=== PATIENT | male | born 1930 | race Hispanic/Latino ===

== ENCOUNTER 2017-11-21 10:36 | Emergency (ER) | payer MEDICARE ==
[~2017-11-21] VITALS: Ht 160 cm; Wt 71.2 kg
[~2017-11-21 10:36] MED LIST: AMLODIPINE BESY10 MG PO; ASPIRIN EC81 MG PO; ASPIRIN325 MG PO; ATENOLOL25 MG PO; ATENOLOL50 MG PO; ATORVASTATIN CA10 MG PO; AVODART0.5 MG PO; CEPHALEXIN500 MG PO; CLONIDINE HCL0.1 MG PO; CYCLOBENZAPRINE10 MG PO; FLOMAX0.4 MG PO; FOLIC ACID0.4 MG PO; GEMFIBROZIL600 MG PO; GLIPIZIDE ER10 MG; HYDROCHLOROTHIA25 MG PO; ISOSORBIDE DINI20 MG PO; LEVEMIR100 UNIT/1 SC; LIPITOR20 MG PO; LOSARTAN POTAS100 MG PO; METFORMIN HCL1000 M1 PO; NASONEX17 GM; NITROSTAT0.4 MG SL; NOVOLOG100 UNITS/ PO; OMEPRAZOLE40 MG PO; PLAVIX75 MG PO; POTASSIUM CHLO10 ME1 PO; POTASSIUM CHLO10 MEQ PO; TRADJENTA5 MG PO
[2017-11-21] MEDS ORDERED: PREDNISONE20 MG PO (11:26)
[2017-11-21] MEDS ORDERED: FOLIC ACID1 MG PO (11:26)
[2017-11-21] MEDS ORDERED: ATORVASTATIN CA10 MG PO (11:26)
[2017-11-21] MEDS ORDERED: GEMFIBROZIL600 MG PO (11:26)
[2017-11-21 11:59] LABS: BASOPHILS # (AUTO) 0.1 (0.0-0.1); BASOPHILS % 0.4 % (0.0-1.0); EOSINOPHILS # (AUTO) 0.1 (0.0-0.4); EOSINOPHILS % 0.9 % (0.0-6.0); HEMATOCRIT 39.6 % (38.2-49.6); HEMOGLOBIN 13.2 g/dL (14.0-18.0); LYMPHOCYTES # (AUTO) 0.8 (1.0-3.2); LYMPHOCYTES % 5.9 % (18.0-39.1); MEAN CORPUSCULAR HEMOGLOBIN 31.2 pg (28-32); MEAN CORPUSCULAR HGB CONC 33.3 g/dL (31-35); MEAN CORPUSCULAR VOLUME 93.6 fL (81-99); MONOCYTES # (AUTO) 0.9 (0.2-0.8); MONOCYTES % 6.2 % (4.4-11.3); NEUTROPHILS # (AUTO) 11.6 (2.1-6.9); NEUTROPHILS % 84.6 % (38.7-80.0); PLATELET COUNT 294 x10e3/uL (140-360); RED BLOOD COUNT 4.23 x10e6/uL (4.3-5.7); RED CELL DISTRIBUTION WIDTH 13.3 % (11.7-14.4)
--- NOTE | 2017-11-21 12:19 | Diagnostic Imaging Report ---
Examination: CT head without contrast Clinical Indication: Headache; back of head pain. Technique: Transaxial noncontrast images from the skull base through the vertex were obtained. Sagittal and coronal reformatted images were done. Comparison: Head CT dated 04/09/2009. Findings: Scalp: No abnormalities. Bones: Intact. No fractures. No blastic or lytic lesions. Brain sulci: Mild volume loss for patient's age. Ventricles: No hydrocephalus. Extra-axial space: No acute abnormalities. There is a new partially calcified 1.3 x 1.0x 0.9cm lesion in the right orbitofrontal convexity when compared to prior exam, and most probably represents a meningioma. There is no associated hemorrhage, vasogenic edema or midline shift or herniation. Parenchyma: There are mild confluent areas of low-attenuation within subcortical and periventricular white matter, nonspecific, but could represent microvascular ischemic disease. Again demonstrated is cortical based encephalomalacia involving the inferolateral aspect of the left cerebellum. No masses, hemorrhage, or acute cortical based vascular insults. Suprasellar region: No abnormalities. Craniocervical junction: The foramen magnum is patent. No Chiari one malformation. Incidental findings: Atherosclerotic calcification of the cavernous and supraclinoid internal carotid and V4 segments of the bilateral vertebral arteries. Impression: 1. No new acute intracranial finding. 2. New partially calcified 1.3 x 1.0x 0.9cm right orbitofrontal convexity lesion when compared to prior head CT dated 04/09/2009, and most probably represents a meningioma. No associated hemorrhage, vasogenic edema or midline shift or herniation. Nonemergent contrast enhanced brain MRI and neurosurgical consultation is suggested. 3. Unchanged mild chronic microvascular ischemic change and volume loss. 4. 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 Signed by: Dr. Lyssa Harrison M.D. on 11/21/2017 12:15 PM
--- NOTE | 2017-11-21 12:24 | Diagnostic Imaging Report ---
Examination: CT CERVICAL SPINE WITHOUT CONTRAST HISTORY:Neck pain. Rule out fracture. COMPARISON:None. TECHNIQUE: Multidetector helical axial images were obtained without contrast from the foramen magnum to T1. Coronal and sagittal reformatted images were done. Bone and soft tissue windows were evaluated. FINDINGS: Alignment:Normal alignment with straightening of normal lordosis. Vertebrae: Normal height and density. No acute fracture, infection or neoplasm. In the right lateral mass of C2, there is a 1cm cyst lesion, most probably represents a bone cyst. Caliber of spinal canal: Developmentally normal. Posterior fossa and craniocervical junction: Foramen magnum patent. No Chiari 1 malformation. Soft tissues: No abnormality. Degenerative changes: Moderate bilateral facet arthropathy from C2 through T1 and diffuse disc osteophyte complexes from C4-C5 through C6-C7 without canal stenosis. IMPRESSION: 1. No acute abnormalities. 2. Degenerative changes, as above. Signed by: Dr. Lyssa Harrison M.D. on 11/21/2017 12:20 PM
[2017-11-21 12:28] LABS: ALBUMIN 3.4 g/dL (3.5-5.0); ANION GAP 17.9 mmol/L (8-16); CALCIUM 9.9 mg/dL (8.4-10.2); CREATININE, SERUM 1.34 mg/dL (0.72-1.25); POTASSIUM 3.9 mmol/L (3.5-5.1)
[2017-11-21 12:49] LABS: INR 1.1; PROTHROMBIN TIME 13.4 seconds (11.9-14.5)
[2017-11-21 12:50] LABS: PARTIAL THROMBOPLASTIN TIME 22.7 seconds (23.8-35.5)
[2017-11-21 13:46] VITALS: BP 145/89
== END 2017-11-21 13:55 | disposition home or self-care (01) ==
LOC: ER 10:36
DX: G44.209 Tension-type headache, unspecified, not intractable (principal); I10 Essential (primary) hypertension; E11.9 Type 2 diabetes mellitus without complications; I51.9 Heart disease, unspecified; G98.8 Other disorders of nervous system; Z95.1 Presence of aortocoronary bypass graft
CPT/HCPCS: 36415; 70450; 72125; 80053; 85025; 85610; 85730; 93005; 99284

== ENCOUNTER 2018-01-17 10:49 | Inpatient (IN) | payer MEDICARE ==
[2018-01-17] VITALS (38 sets, daily range): BP systolic 96–161; BP diastolic 52–136
[~2018-01-17] VITALS: Ht 160 cm; Wt 76.7 kg
[~2018-01-17 10:49] MED LIST changes: +FOLIC ACID1 MG PO; +PREDNISONE20 MG PO
--- OUTSIDE RECORDS SUMMARY | 2018-01-17 10:52 | XMS REPORT | Clinical Summary ---
Author Author [facility] Address Unknown Phone Unavailable Care Team Providers Care Equine Intern Name Role Phone Mirna Lassiter MD PCP Allergies Active Allergy Reactions Severity Noted Date Comments Penicillins 03/26/2016 Current Medications Prescription Sig. Disp. Refills Start End Date Status Date tamsulosin (FLOMAX) 0.4 5 09/28/19 Active mg capsule,extended 17 release 24hr potassium chloride TK 3 TS PO QAM AND 2 TS 6 09/15/20 Active (K-DUR) 10 MEQ CR tablet PO QHS 16 TRADJENTA 5 mg tablet TK 1 T PO QD 1 08/21/20 Active 16 isosorbide dinitrate TK 1 T PO TID 3 11/20/19 Active (ISORDIL) 20 MG tablet 17 hydroCHLOROthiazide TK 1 T PO QOD 3 09/16/20 Active (HYDRODIURIL) 25 MG 16 tablet BREO ELLIPTA 100-25 INL 1 PUFF PO QD 2 11/16/19 Active mcg/dose blister with 17 device powder for inhalation cyclobenzaprine TK 1 T PO QHS PRF LEG 2 10/27/19 Active (FLEXERIL) 10 mg tablet CRAMP 17 VENTOLIN HFA 90 INL 2 PFS PO Q 4 H 12 11/16/19 Active mcg/actuation inhaler 17 acetaminophen-codeine TK 1 T PO Q 6 H 0 10/30/19 Active (TYLENOL WITH CODEINE #3) 17 300-30 mg per tablet aspirin (ECOTRIN) 81 MG Take 81 mg by mouth Active enteric coated tablet daily. insulin ASPART (NovoLOG) Inject under the skin 3 Active 100 unit/mL injection (three) times a day before meals. Active Problems Problem Noted Date Fatty liver 11/27/2016 Diaphragmatic hernia without obstruction and without gangrene 11/27/2016 Family History Medical History Relation Name Comments No Known Problems Brother No Known Problems Father No Known Problems Maternal Aunt No Known Problems Maternal Grandfather No Known Problems Maternal Grandmother No Known Problems Maternal Uncle No Known Problems Mother No Known Problems Paternal Aunt No Known Problems Paternal Grandfather No Known Problems Paternal Grandmother No Known Problems Paternal Uncle No Known Problems Sister Ring's esophagus Neg Hx Breast cancer Neg Hx Celiac disease Neg Hx Cirrhosis Neg Hx Colon cancer Neg Hx Colon polyps Neg Hx Crohn's disease Neg Hx Cystic fibrosis Neg Hx Eating disorder Neg Hx Esophageal cancer Neg Hx GERD Neg Hx AWNING MAKER Cancer Neg Hx Hemochromatosis Neg Hx Inflammatory bowel Neg Hx disease Irritable bowel syndrome Neg Hx Liver cancer Neg Hx Liver disease Neg Hx Pancreatic cancer Neg Hx Pancreatitis Neg Hx Rectal cancer Neg Hx Stomach cancer Neg Hx Ulcerative colitis Neg Hx Relation Name Status Comments Brother Father Maternal Aunt Maternal Grandfather Maternal Grandmother Maternal Uncle Mother Paternal Aunt Paternal Grandfather Paternal Grandmother Paternal Uncle Sister Social History Tobacco Use Types Packs/Day Years Used Date Never Smoker Sex Assigned at Date Recorded Not on file Last Filed Vital Signs Not on file Plan of Treatment Health Maintenance Due Date Last Done Comments ZOSTER VACCINE 1990 PNEUMOCOCCAL 1995 POLYSACCHARIDE VACCINE AGE 65 AND OVER PNEUMOCOCCAL-13 1995 INFLUENZA VACCINE 04/27/2018 Results Not on fileafter 01/16/2017 Insurance Payer Benefit Subscriber ID Type Phone Address Plan / Group HU[employer]NA MEDICARE HUMANA xxxxxxxxx PPO MEDICARE PPO/PFFS/E [place] [address]
--- OUTSIDE RECORDS SUMMARY | 2018-01-17 10:52 | XMS REPORT | Continuity of Care Document ---
Author Author [facility] Organization [facility] Address [address] [place] [place] [address] Phone Unavailable Care Team Providers Care Data Systems Analyst Name Role Phone SANJU LINDA DO PCP Insurance Providers Guarantor Nima Cottrell Address [address] [place] [address] Email PT DECLINED Payer [employer] Medicare Policy Number [id number] Subscriber's Name Nima Cottrell Relationship 18 Self / Same As Patient Group Number [id number] Group Name [employer] Effective Date 13 Advance Directives Directive Response Recorded Date/Time Does the patient have an advance directive? Yes 01/07/17 8:45pm If yes, is advance directive on file with [facility]? No 01/07/17 8:45pm If not on file with [facility] will patient provide a copy? Yes 01/07/17 8:45pm Do you have a Directive to Physician? No 11/21/17 1:16pm Do you have a Medical Power of Ski Lift Mechanic? No 11/21/17 1:16pm Do you have an out of hospital Do Not Resuscitate Order? No 11/21/17 1:16pm Do you have any special needs we should be aware of? No 11/21/17 1:16pm Do you have a support person here with you today? Yes 11/21/17 1:16pm Did patient receive Notice of Privacy Practices? Yes 11/21/17 1:16pm Did patient receive patient rights and responsibilities? Yes 11/21/17 1:16pm Problems Medical Problem Onset Date Status CHF (congestive heart failure) 06/18/2016 Acute COPD exacerbation Unknown Chest pain 06/18/2016 Acute Chest pain Unknown Hypertensive crisis Unknown Medications Current Home Medications Medication Dose Units Route Directions Days Qty Instructions Start Date Amlodipine Besylate 10 Mg Tablet 10 Mg Oral Daily 30 Tab Aspirin (Aspirin Ec) 81 Mg Tablet.dr 81 Mg Oral Daily 30 Tab Atenolol 25 Mg Tablet 50 Mg Oral Daily Atorvastatin Calcium 10 Mg Tablet 10 Mg Oral Today At 9:00PM 30 Tab Clonidine Hcl 0.1 Mg Tablet 1 Tab Oral Twice A Day 60 Tab Clopidogrel Bisulfate (Plavix) 75 Mg Tablet 75 Mg Oral Daily 30 Tab Cyclobenzaprine Hcl 10 Mg Tablet 10 Mg Oral Bedtime Folic Acid 1 Mg Tablet 1 Mg Oral Daily 30 Tab Gemfibrozil 600 Mg Tablet 600 Mg Oral Twice A Day Hydrochlorothiazide 25 Mg Tablet 25 Mg Oral Every Other Day 30 Tab Insulin Aspart (Novolog) 100 Units/Ml Ml 20 Unit Oral Three Times Daily With Meals Insulin Detemir (Levemir) 100 Unit/1 Ml Vial 30 Unit Subcutaneously Bedtime Linagliptin (Tradjenta) 5 Mg Tablet 5 Mg Oral Daily Nitroglycerin (Nitrostat) 0.4 Mg Tab.subl 0.4 Mg Sublingual Every 5 Minutes as needed for Chest Pain Potassium Chloride 10 Meq Tab.er.prt 10 Meq Oral 6XD Prednisone 20 Mg Tab 20 Mg Oral Daily Tamsulosin Hcl (Flomax*) 0.4 Mg Cap 0.4 Mg Oral Daily 30 Cap Past Home Medications Medication Directions Ordered Status Aspirin 325 Mg Tablet, 325 Mg Oral Daily Discontinued Atorvastatin Calcium (Lipitor) 20 Mg Tablet, 10 Mg Oral Daily Discontinued Atorvastatin Calcium 10 Mg Tablet, 10 Mg Oral Today At 9:00PM Discontinued Cephalexin 500 Mg Capsule, 500 Mg Oral Twice A Day Discontinued Dutasteride (Avodart) 0.5 Mg Capsule, 0.4 Mg Oral Daily Discontinued Folic Acid 0.4 Mg Tablet, 0.8 Mg Oral Daily Discontinued Gemfibrozil 600 Mg Tablet, 600 Mg Oral Twice A Day Discontinued Glipizide (Glipizide Er) 10 Mg Tab.er.24, Discontinued Hydrochlorothiazide 25 Mg Tablet, 25 Mg Oral Daily Discontinued Isosorbide Dinitrate 20 Mg Tablet, 20 Mg Oral Three Times A Day Discontinued Losartan Potassium 100 Mg Tablet, 100 Mg Oral Daily Discontinued Metformin Hcl (Metformin Hcl Er) 1,000 Mg Tab.er.24, 1 Tab Oral Daily Discontinued Mometasone Furoate (Nasonex) 17 [address] [place], 2 Sprays Nasal Daily Discontinued Omeprazole 40 Mg Capsule.dr, 40 Mg Oral Daily Discontinued Potassium Chloride 10 Meq Tablet.er, 10 Meq Oral Daily Discontinued Tamsulosin Hcl (Flomax*) 0.4 Mg Cap, 0.8 Mg Oral Daily Discontinued Tamsulosin Hcl (Flomax*) 0.4 Mg Cap, 0.4 Mg Oral Daily Discontinued Social History Social History Problem Response Recorded Date/Time Onset Date Status Hx Psychiatric Problems No 01/07/2017 8:45pm Not Applicable Not Applicable Hx Eating Disorder No 01/07/2017 8:45pm Not Applicable Not Applicable Hx Substance Use Disorder No 01/07/2017 8:45pm Not Applicable Not Applicable Hx Depression No 01/07/2017 8:45pm Not Applicable Not Applicable Hx Alcohol Use No 01/07/2017 8:45pm Not Applicable Not Applicable Hx Substance Use Treatment No 01/07/2017 8:45pm Not Applicable Not Applicable Hx Physical Abuse No 01/07/2017 8:45pm Not Applicable Not Applicable Smoking Status Start Date Stop Date Never Smoker Hospital Discharge Instructions No hospital discharge instruction information available. Plan of Care Discharge Date 11/21/17 1:55pm Disposition HOME, SELF-CARE Condition at Discharge Improved Instructions/Education Provided Headache Medication Safety Fall Prevention Prescriptions See Medication Section Additional Instructions/Education DIAGNOSIS: TENSION TYPE HEADACHE PRESCRIPTION: TRAMADOL 50 MG EVERY 8 HOURS NEEDED FOR PAIN TAKE MEDICATION DIRECTED. FOLLOW UP WITH YOUR DOCTOR IN 2-3 DAYS. RETURN TO ER FOR WORSENING SYMPTOMS OR ANY OTHER CONCERNS OR PROBLEMS. Functional Status No functional status information available. Allergies, Adverse Reactions, Alerts Allergen Type Severity Reaction Status Last Updated Penicillin Allergy Mild PRICKLY HEAT Active 11/21/17 Immunizations No immunization information available. Vital Signs Acute Vital Signs Vital Response Date/Time Temperature (Fahrenheit) 98.0 degrees F (97.6 - 99.5) 11/21/2017 1:46pm Pulse Pulse Rate (adult) 57 bpm (60 - 90) 11/21/2017 1:46pm Respiratory Rate 16 bpm (12 - 24) 11/21/2017 1:46pm Blood Pressure 145/89 mm Hg 11/21/2017 1:46pm Height 5 ft 3 in 11/21/2017 10:47am Weight 157 lb 11/21/2017 10:47am Body Mass Index 27.8 kg/m^2 11/21/2017 10:47am Results Laboratory Results Test Name Result Units Flags Reference Collection Date/Time Result Date/ Time Comments White Blood Count 13.65 x10e3/uL H 4.8-10.8 11/21/2017 11:30am 2017 12:06pm Red Blood Count 4.23 x10e6/uL L 4.3-5.7 11/21/2017 11:30am 11/21/2017 12 :06pm Hemoglobin 13.2 g/dL L 14.0-18.0 11/21/2017 11:30am 11/21/2017 12:06pm Hematocrit 39.6 % 38.2-49.6 11/21/2017 11:3011/21/2017 12:06pm Mean Corpuscular Volume 93.6 fL 81-99 11/21/2017 11:3011/21/2017 12: 06pm Mean Corpuscular Hemoglobin 31.2 pg 28-32 11/21/2017 11:302017 12:06pm Mean Corpuscular Hemoglobin Concent 33.3 g/dL 31-35 11/21/2017 11:3011/21/2017 12:06pm Red Cell Distribution Width 13.3 % 11.7-14.4 11/21/2017 11:30am 2017 12:06pm Platelet Count 294 x10e3/uL 140-360 11/21/2017 11:3011/21/2017 12: 06pm Neutrophils (%) (Auto) 84.6 % H 38.7-80.0 11/21/2017 11:3011/21/2017 12:06pm Lymphocytes (%) (Auto) 5.9 % L 18.0-39.1 11/21/2017 11:3011/21/2017 12:06pm Monocytes (%) (Auto) 6.2 % 4.4-11.3 11/21/2017 11:3011/21/2017 12: 06pm Eosinophils (%) (Auto) 0.9 % 0.0-6.0 11/21/2017 11:30am 11/21/2017 12: 06pm Basophils (%) (Auto) 0.4 % 0.0-1.0 11/21/2017 11:30am 11/21/2017 12: 06pm IM GRANULOCYTES % 2.0 % H 0.0-1.0 11/21/2017 11:30am 11/21/2017 12:06pm Neutrophils # (Auto) 11.6 H 2.1-6.9 11/21/2017 11:30am 11/21/2017 12: 06pm Lymphocytes # (Auto) 0.8 L 1.0-3.2 11/21/2017 11:30am 11/21/2017 12: 06pm Monocytes # (Auto) 0.9 H 0.2-0.8 11/21/2017 11:30am 11/21/2017 12: 06pm Eosinophils # (Auto) 0.1 0.0-0.4 11/21/2017 11:30am 11/21/2017 12: 06pm Basophils # (Auto) 0.1 0.0-0.1 11/21/2017 11:30am 11/21/2017 12:06pm Absolute Immature Granulocyte (auto 0.27 x10e3/uL H 0-0.1 11/21/2017 11: 30am 11/21/2017 12:06pm Prothrombin Time 13.4 seconds 11.9-14.5 11/21/2017 11:30am 11/21/2017 1 :20pm Prothromb Time International Ratio 1.10 11/21/2017 11:30am 2017 1:20pm Oral Anticoagulant Therapy INR Values: 1. Low Intensity Therapy 1.5 - 2.0 2. Moderate Intensity Therapy 2.0 - 3.0 3. High Intensity Therapy(1) 2.5 - 3.5 4. High Intensity Therapy(2) 3.0 - 4.0 5. Panic Value INR > 5.0 Activated Partial Thromboplast Time 22.7 seconds L 23.8-35.5 11/21/2017 11:30am 11/21/2017 1:20pm Sodium Level 144 mmol/L 136-145 11/21/2017 11:30am 11/21/2017 12:35pm Potassium Level 3.9 mmol/L 3.5-5.1 11/21/2017 11:3011/21/2017 12: 35pm Chloride Level 102 mmol/L 98-107 11/21/2017 11:3011/21/2017 12:35pm Carbon Dioxide Level 28 mmol/L 22-29 11/21/2017 11:3011/21/2017 12: 35pm Anion Gap 17.9 mmol/L H 8-16 11/21/2017 11:3011/21/2017 12:35pm Blood Urea Nitrogen 29 mg/dL H 7-11/21/2017 11:3011/21/2017 12: 35pm Creatinine 1.34 mg/dL H 0.72-1.25 11/21/2017 11:3011/21/2017 12:35pm BUN/Creatinine Ratio 22 6-11/21/2017 11:3011/21/2017 12:35pm Estimat Glomerular Filtration Rate 50 ML/MIN L 60- 11/21/2017 11:30 12:35pm Ranges were taken from the National Kidney Disease Education Program and the National Kidney Foundation literature. Reference ranges: 60 or greater: Normal 16-59 (for 3 consecutive months): Chronic kidney disease 15 or less: Kidney failure Glucose Level 87 mg/dL 74-118 11/21/2017 11:3011/21/2017 12:35pm Calcium Level 9.9 mg/dL 8.4-10.2 11/21/2017 11:3011/21/2017 12:35pm Total Bilirubin 0.5 mg/dL 0.2-1.2 11/21/2017 11:3011/21/2017 12: 35pm Aspartate Amino Transf (AST/SGOT) 15 IU/L 5-34 11/21/2017 11:3011/21 12:35pm Alanine Aminotransferase (ALT/SGPT) 25 IU/L 0-55 11/21/2017 11:30 12:35pm Total Protein 6.8 g/dL 6.5-8.1 11/21/2017 11:3011/21/2017 12:35pm Albumin 3.4 g/dL L 3.5-5.0 11/21/2017 11:3011/21/2017 12:35pm Globulin 3.4 g/dL 2.3-3.5 11/21/2017 11:30am 11/21/2017 12:35pm Albumin/Globulin Ratio 1.0 0.8-2.0 11/21/2017 11:30am 11/21/2017 12: 35pm Alkaline Phosphatase 69 IU/L 40-150 11/21/2017 11:30am 11/21/2017 12: 35pm Procedures Procedure Status Date Provider(s) Computed tomography of brain without radiopaque contrast Active 11/21/17 DAV LEON MD Computed tomography of cervical spine without contrast Active 11/21/17 DAV LEON MD Encounters Encounter Location Arrival/Admit Date Discharge/Depart Date Attending Provider Departed Emergency Room [facility] 11/21/17 10:36am 11/21 1:55pm DAV LEON MD
--- OUTSIDE RECORDS SUMMARY | 2018-01-17 10:52 | XMS REPORT ---
Author Author [facility] Address Unknown Phone Unavailable Care Team Providers Care Seafood Farmer Name Role Phone DAV LEON Unavailable Unavailable Problems This patient has no known problems. Allergies, Adverse Reactions, Alerts This patient has no known allergies or adverse reactions. Medications This patient has no known medications. Results Test Description Test Time Test Comments Text Results Atomic Results Result Comments CT BRAIN WO [facility] [address] [address] Patient Name: MOOSE COTTRELL MR #: [id number] : 1930 Age/Sex: 87/M Req #: [id number] [facility] Physician: Ordered by: DAV LEON MD Report #: [id number] Location: ER Room/Bed: Procedure: [id number] CT/CT BRAIN WO Exam Date: 11/21/17 Exam Time: 1145 REPORT STATUS: Signed Examination: CT head without contrast Clinical Indication: Headache; back of head pain. Technique: Transaxial noncontrast images from the skull base through the vertex were obtained. Sagittal and coronal reformatted images were done. Comparison: Head CT dated 04/09/2009. Findings: Scalp: No abnormalities. Bones: Intact. No fractures. No blastic or lytic lesions. Brain sulci: Mild volume loss for patient's age. Ventricles: No hydrocephalus. Extra-axial space: No acute abnormalities. There is a new partially calcified 1.3 x 1.0x 0.9cm lesion in the right orbitofrontal convexity when compared to prior exam, and most probably represents a meningioma. There is no associated hemorrhage, vasogenic edema or midline shift or herniation. Parenchyma: There are mild confluent areas of low-attenuation within subcortical and periventricular white matter, nonspecific, but could represent microvascular ischemic disease. Again demonstrated is cortical based encephalomalacia involving the inferolateral aspect of the left cerebellum. No masses, hemorrhage, or acute cortical based vascular insults. Suprasellar region: No abnormalities. Craniocervical junction: The foramen magnum is patent. No Chiari one malformation. Incidental findings: Atherosclerotic calcification of the cavernous and supraclinoid internal carotid and V4 segments of the bilateral vertebral arteries. Impression: 1. No new acute intracranial finding. 2. New partially calcified 1.3 x 1.0x 0.9cm right orbitofrontal convexity lesion when compared to prior head CT dated 04/09, and most probably represents a meningioma. No associated hemorrhage, vasogenic edema or midline shift or herniation. Nonemergent contrast enhanced brain MRI and neurosurgical consultation is suggested. 3. Unchanged mild chronic microvascular ischemic change and volume loss. 4. 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 Signed by: Dr. Lyssa Harrison M.D. on 11/21/2017 12:15 PM Dictated By: LYSSA HANSON MD 1215 Transcribed By: ROSINA on 11/21/17 1215 COPY TO: DAV LEON MD CT CERVICAL SPINE [address] [place] [address] Patient Name: MOOSE COTTRELL MR #: [id number] : 1930 Age/Sex: 87/M Req #: [id number] Adm Physician: Ordered by: DAV LEON MD Report #: [id number] Location: Room/Bed: Procedure: [id number] CT/CT CERVICAL SPINE WO Exam Date: 11/21/17 Exam Time: 1145 REPORT STATUS: Signed Examination: CT CERVICAL SPINE WITHOUT CONTRAST HISTORY:Neck pain. Rule out fracture. COMPARISON:None. TECHNIQUE: Multidetector helical axial images were obtained without contrast from the foramen magnum to T1. Coronal and sagittal reformatted images were done. Bone and soft tissue windows were evaluated. FINDINGS: Alignment:Normal alignment with straightening of normal lordosis. Vertebrae: Normal height and density. No acute fracture, infection or neoplasm. In the right lateral mass of C2, there is a 1cm cyst lesion, most probably represents a bone cyst. Caliber of spinal canal: Developmentally normal. Posterior fossa and craniocervical junction: Foramen magnum patent. No Chiari 1 malformation. Soft tissues: No abnormality. Degenerative changes: Moderate bilateral facet arthropathy from C2 through T1 and diffuse disc osteophyte complexes from C4-C5 through C6 -C7 without canal stenosis. IMPRESSION: 1. No acute abnormalities. 2. Degenerative changes, as above. Signed by: Dr. Lyssa Harrison M.D. on 11/21/2017 12:20 PM Dictated By: LYSSA HANSON MD 1220 Transcribed By: ROSINA on 11/21/17 1220 COPY TO: DAV LEON MD
[2018-01-17] MEDS ORDERED: ASPIRIN 81 MG CHEW TAB PO ONE (11:15)
[2018-01-17 11:21] LABS: BASOPHILS % 0.3 % (0.0-1.0); EOSINOPHILS # (AUTO) 0.1 (0.0-0.4); EOSINOPHILS % 0.6 % (0.0-6.0); HEMATOCRIT 31.8 % (38.2-49.6); HEMOGLOBIN 10.1 g/dL (14.0-18.0); LYMPHOCYTES # (AUTO) 0.9 (1.0-3.2); MEAN CORPUSCULAR HGB CONC 31.8 g/dL (31-35); MEAN CORPUSCULAR VOLUME 94.4 fL (81-99); NEUTROPHILS # (AUTO) 13.7 (2.1-6.9); NEUTROPHILS % 86.5 % (38.7-80.0); PLATELET COUNT 343 x10e3/uL (140-360); RED BLOOD COUNT 3.37 x10e6/uL (4.3-5.7); RED CELL DISTRIBUTION WIDTH 14.5 % (11.7-14.4)
[2018-01-17] MEDS ORDERED: MORPHINE SULFATE 2 MG/ML SYR IV STA (11:21)
--- NOTE | 2018-01-17 11:35 | Diagnostic Imaging Report ---
PROCEDURE: A single AP view of the chest. COMPARISON: Chest 2 views 01/17/2017. INDICATIONS: chest pain FINDINGS: Lines/tubes: None. Lungs: Bilateral multifocal airspace opacities. No parenchymal mass. Pleura: There is no pleural effusion or pneumothorax. Heart and mediastinum: The heart and the mediastinum are unremarkable. Bones: No acute bony abnormality. Degenerative changes of the thoracic spine. Median sternotomy wires. IMPRESSION: Bilateral multifocal airspace opacities may represent atelectasis or developing pneumonia. Dictated by: Eamon Viera M.D. on 01/17/2018 at 11:36 Electronically approved by: Eamon Viera M.D. on 01/17/2018 at 11:36
[2018-01-17 11:38] LABS: INR 1.42; PARTIAL THROMBOPLASTIN TIME 25.2 seconds (23.8-35.5); PROTHROMBIN TIME 16.3 seconds (11.9-14.5)
[2018-01-17 11:47] LABS: ALBUMIN 3.1 g/dL (3.5-5.0); ANION GAP 13.3 mmol/L (8-16); CALCIUM 10.2 mg/dL (8.4-10.2); CREATININE, SERUM 1.42 mg/dL (0.72-1.25); POTASSIUM 3.3 mmol/L (3.5-5.1)
[2018-01-17 11:59] LABS: CREATINE KINASE MB 4.8 ng/mL (0-5.0)
[2018-01-17] MEDS ORDERED: FUROSEMIDE INJ 10 MG/ML 4 ML VIAL IV ONE (12:15)
[2018-01-17] MEDS ORDERED: NITROGLYCERIN/D5W 200 MCG/ML 250 ML IV STA (12:23)
[2018-01-17] MEDS ORDERED: POTASSIUM CHLORIDE 20 MEQ TAB CR PO STA (12:48)
[2018-01-17] MEDS ORDERED: DEXTROSE 50% SYRINGE 50 ML IV PRN (13:15)
[2018-01-17] MEDS ORDERED: MORPHINE SULFATE 2 MG/ML SYR IV PRN (13:15)
[2018-01-17] MEDS: FAMOTIDINE 20 MG TAB PO SCH (13:51)
--- OUTSIDE RECORDS SUMMARY | 2018-01-17 14:00 | XMS REPORT | Clinical Summary ---
Author Author [facility] Organization [facility] Address Unknown Phone Unavailable Care Team Providers Care Lozenge Dough Mixer Name Role Phone Mirna Lassiter MD PCP [...] Esophageal cancer Neg Hx GERD Neg Hx GELATIN PLANT SUPERVISOR Cancer Neg Hx Hemochromatosis Neg Hx Inflammatory [...] HUMANA xxxxxxxxx PPO MEDICARE PPO/PFFS/E [facility] [place] [address]
[2018-01-17] MEDS ORDERED: XARELTO10 MG PO (16:04)
[2018-01-17] MEDS ORDERED: MULTAQ 400MG T400 MG PO (16:04)
[2018-01-17] MEDS: INSULIN REGULAR, HUMAN 100 UNIT/1 ML 3ML VIAL SQ SCH ×2 (16:30→21:58)
[2018-01-17] MEDS ORDERED: NITROGLYCERIN 0.4 MG SUBL SL PRN (18:00)
[2018-01-17 18:38] LABS: FREE THYROXINE INDEX 1.6687 (1.4-3.8); THYROID STIMULATING HORMONE 1.587 uIU/mL (0.350-4.940)
[2018-01-17] MEDS: NITROGLYCERIN/D5W 200 MCG/ML 250 ML IV SCH (18:50)
[2018-01-17 19:48] LABS: CREATINE KINASE MB 9.4 ng/mL (0-5.0)
[2018-01-17] MEDS ORDERED: INSULIN DETEMIR 100 UNIT/ML PEN SQ SCH (21:00)
[2018-01-17] MEDS ORDERED: INSULIN DETEMIR 30 UNIT SC SCH (21:00)
[2018-01-17] MEDS: ATORVASTATIN 10 MG TAB PO SCH (21:58)
[2018-01-18] VITALS (41 sets, daily range): BP systolic 90–163; BP diastolic 50–115
[2018-01-18] MEDS: FAMOTIDINE 20 MG TAB PO SCH ×2 (01:14→16:58)
[2018-01-18 02:33] LABS: CREATINE KINASE MB 7.9 ng/mL (0-5.0)
[2018-01-18 06:19] LABS: BASOPHILS # (AUTO) 0.1 (0.0-0.1); BASOPHILS % 0.4 % (0.0-1.0); EOSINOPHILS # (AUTO) 0.1 (0.0-0.4); EOSINOPHILS % 0.8 % (0.0-6.0); HEMATOCRIT 32.6 % (38.2-49.6); HEMOGLOBIN 10.1 g/dL (14.0-18.0); LYMPHOCYTES # (AUTO) 1.3 (1.0-3.2); LYMPHOCYTES % 9.5 % (18.0-39.1); MEAN CORPUSCULAR HEMOGLOBIN 29.9 pg (28-32); MEAN CORPUSCULAR VOLUME 96.4 fL (81-99); MONOCYTES # (AUTO) 1.3 (0.2-0.8); MONOCYTES % 9.9 % (4.4-11.3); NEUTROPHILS # (AUTO) 10.3 (2.1-6.9); NEUTROPHILS % 78.8 % (38.7-80.0); PLATELET COUNT 385 x10e3/uL (140-360); RED BLOOD COUNT 3.38 x10e6/uL (4.3-5.7); RED CELL DISTRIBUTION WIDTH 14.6 % (11.7-14.4)
[2018-01-18 06:38] LABS: INR 1.55; PROTHROMBIN TIME 17.5 seconds (11.9-14.5)
[2018-01-18 06:58] LABS: ALBUMIN/GLOBULIN RATIO 0.9 (0.8-2.0); ANION GAP 14.8 mmol/L (8-16); CALCIUM 9.9 mg/dL (8.4-10.2); CHOL/HDL RATIO 3.9 (3.9-4.7); CREATININE, SERUM 1.43 mg/dL (0.72-1.25)
[2018-01-18 07:11] LABS: POTASSIUM 2.8 mmol/L (3.5-5.1)
[2018-01-18] MEDS: POTASSIUM CHLORIDE 20 MEQ TAB CR PO SCH (07:25)
[2018-01-18 07:30] LABS: CREATINE KINASE MB 5.9 ng/mL (0-5.0)
[2018-01-18] MEDS: INSULIN LISPRO 100 UNIT/1 ML 3ML VIAL SQ SCH ×5 (07:53→17:14)
[2018-01-18] MEDS: ASPIRIN 325 MG TAB EC PO SCH (07:53)
[2018-01-18] MEDS: CLONIDINE HCL 0.1 MG TAB PO SCH ×2 (07:53→16:58)
[2018-01-18] MEDS: FOLIC ACID 1 MG TAB PO SCH (07:54)
[2018-01-18] MEDS: TAMSULOSIN HCL 0.4 MG CAP PO SCH (07:54)
[2018-01-18] MEDS: DRONEDARONE 400 MG TAB PO SCH ×2 (07:54→16:58)
[2018-01-18] MEDS: AMLODIPINE BESYLATE 10 MG TAB PO SCH (07:54)
[2018-01-18] MEDS: HYDROCHLOROTHIAZIDE 25 MG TAB PO SCH (07:54)
[2018-01-18] MEDS: PREDNISONE 10 MG TAB PO SCH (07:55)
[2018-01-18] MEDS: ATENOLOL 50 MG TAB PO SCH (07:55)
[2018-01-18] MEDS ORDERED: INSULIN LISPRO 100 UNIT/1 ML 3ML VIAL SQ SCH ×2 (08:00→11:30)
[2018-01-18] MEDS ORDERED: ATENOLOL 50 MG PO SCH (09:00)
[2018-01-18] MEDS ORDERED: POTASSIUM CHLORIDE 10 MEQ TABCR PO SCH (09:00)
[2018-01-18] MEDS: LINAGLIPTIN 5 MG PO SCH (09:00)
[2018-01-18] MEDS ORDERED: AMIODARONE HCL 150 MG in DEXTROSE 5% 100ML 100 ML IV ONE (10:00)
[2018-01-18 14:58] LABS: CALCIUM 9.6 mg/dL (8.4-10.2); CREATININE, SERUM 1.66 mg/dL (0.72-1.25)
[2018-01-18 15:08] LABS: CREATINE KINASE MB 3.8 ng/mL (0-5.0)
[2018-01-18] MEDS: NITROGLYCERIN/D5W 200 MCG/ML 250 ML IV SCH (19:00)
[2018-01-18] MEDS: ENOXAPARIN SOD INJ 60 MG/0.6 ML SYR SC SCH (20:44)
[2018-01-18] MEDS: ATORVASTATIN 10 MG TAB PO SCH (20:44)
[2018-01-18] MEDS: INSULIN DETEMIR 100 UNIT/ML PEN SQ SCH (20:45)
[2018-01-18 22:46] LABS: CREATINE KINASE MB 3.5 ng/mL (0-5.0)
[2018-01-19] VITALS (24 sets, daily range): BP systolic 96–146; BP diastolic 57–89
[2018-01-19 06:38] LABS: INR 1.4; PROTHROMBIN TIME 16.1 seconds (11.9-14.5)
[2018-01-19 06:39] LABS: PARTIAL THROMBOPLASTIN TIME 30.3 seconds (23.8-35.5)
[2018-01-19 06:49] LABS: ANION GAP 14.7 mmol/L (8-16); CALCIUM 9.2 mg/dL (8.4-10.2); CREATININE, SERUM 1.49 mg/dL (0.72-1.25); POTASSIUM 3.7 mmol/L (3.5-5.1)
[2018-01-19] MEDS: INSULIN LISPRO 100 UNIT/1 ML 3ML VIAL SQ SCH ×7 (07:30→17:57)
[2018-01-19] MEDS: FAMOTIDINE 20 MG TAB PO SCH ×2 (08:33→17:57)
[2018-01-19] MEDS: CLONIDINE HCL 0.1 MG TAB PO SCH ×2 (08:33→17:00)
[2018-01-19] MEDS: FOLIC ACID 1 MG TAB PO SCH (08:33)
[2018-01-19] MEDS: TAMSULOSIN HCL 0.4 MG CAP PO SCH (08:33)
[2018-01-19] MEDS: HYDROCHLOROTHIAZIDE 25 MG TAB PO SCH (08:33)
[2018-01-19] MEDS: PREDNISONE 10 MG TAB PO SCH (08:34)
[2018-01-19] MEDS: DRONEDARONE 400 MG TAB PO SCH ×2 (08:34→17:58)
[2018-01-19] MEDS: ATENOLOL 50 MG TAB PO SCH (08:34)
[2018-01-19] MEDS: AMLODIPINE BESYLATE 10 MG TAB PO SCH (08:34)
[2018-01-19] MEDS: LINAGLIPTIN 5 MG PO SCH (09:00)
[2018-01-19] MEDS: POTASSIUM CHLORIDE 20 MEQ TAB CR PO SCH (09:28)
[2018-01-19] MEDS: ASPIRIN 325 MG TAB EC PO SCH (09:36)
[2018-01-19] MEDS: ENOXAPARIN SOD INJ 60 MG/0.6 ML SYR SC SCH ×2 (09:36→21:00)
[2018-01-19] MEDS: NITROGLYCERIN/D5W 200 MCG/ML 250 ML IV SCH (19:00)
[2018-01-19] MEDS: INSULIN DETEMIR 100 UNIT/ML PEN SQ SCH (21:00)
[2018-01-19] MEDS: ATORVASTATIN 10 MG TAB PO SCH (21:00)
[2018-01-20] VITALS (58 sets, daily range): BP systolic 108–163; BP diastolic 62–133
--- NOTE | 2018-01-20 05:27 | Consultation ---
DATE OF CONSULTATION: January 17, 2018 CLINICAL HISTORY: This is an 87-year-old white man with complicated cardiovascular history admitted via the emergency room because of severe chest pains rated 10 on a scale of 10, lasting on 2 separate occasions, once for 15 minutes and once for 30 minutes. This patient is status post coronary artery bypass surgery, and in December of 2016 he had a new stent implanted in the proximal diagonal bypass graft. Up to this point he has had approximately 6 or 7 other previous stents. He also has small-vessel disease in the distal right coronary artery which is to be treated medically. He has had also previous graft failures to the circumflex coronary artery. 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 In November of his CT scan had shown a new left inferior cerebellar infarction. He was placed on Xarelto. However, because of bleeding concerns, he was only taking a small dose. PAST SURGERY: Included a coronary artery bypass surgery. FAMILY HISTORY: Father had polycythemia. Mother had congestive heart failure and bypass. PERSONAL AND SOCIAL HISTORY: Denies smoking, drinking. ALLERGIES: PENICILLIN. REVIEW OF SYSTEMS: Noncontributory. PHYSICAL EXAMINATION GENERAL: He is alert, coherent. Appears to be comfortable. CARDIAC: Jugular veins are not distended. S1 and S2 are regular. There is a 2/6 systolic murmur. LUNGS: Clear. ABDOMEN: Soft. Bowel sounds are present. EXTREMITIES: Show no cyanosis, clubbing or edema. LABORATORY STUDIES: The CK and CK-MB are still normal. Troponin is elevated at . BUN is 30, creatinine 1.4, glucose 169, potassium is 3.3, albumin 3.1. The INR is 1.4. White count is 15,000, hemoglobin 10.1, platelet count 343,000. IMPRESSION 1. Possible [id number] myocardial infarction. 2. Compensated congestive heart failure. Recent ejection fraction was 50% on December 17, 2017. 3. Multiple pulmonary nodules. Followed by Dr. Nickolas Patel. 4. Paroxysmal atrial fibrillation. Was in sinus rhythm on January 10, 2018, but now in atrial fibrillation. 5. Chronic kidney disease. Creatinine 1.4, GFR 47. 6. Severe diabetes, insulin-dependent. 7. Hyperlipidemia. 8. Pulmonary hypertension of 47 mmHg. 9. Previous cerebrovascular accident in __2006 with right-sided numbness and left inferior cerebellar cerebrovascular accident November of 2017. 10. History of coronary artery bypass surgery and __7 or 8 previous coronary stents. RECOMMENDATION: Consider repeat cardiac catheterization, angioplasty and stenting. At his age of 87 and with chronic kidney disease, the risk is significant and the benefit is also significant. I have left the decision to the patient and family to decide. They appear to be willing to proceed with repeat intervention. Will see what the subsequent enzyme shows and whether he continues to be symptomatic. Job#: [id number] EV
[2018-01-20] MEDS: FAMOTIDINE 20 MG TAB PO SCH ×2 (07:30→16:30)
[2018-01-20] MEDS: INSULIN LISPRO 100 UNIT/1 ML 3ML VIAL SQ SCH ×6 (07:30→19:05)
[2018-01-20] MEDS: TAMSULOSIN HCL 0.4 MG CAP PO SCH (09:00)
[2018-01-20] MEDS: ENOXAPARIN SOD INJ 60 MG/0.6 ML SYR SC SCH (09:00)
[2018-01-20] MEDS: DRONEDARONE 400 MG TAB PO SCH ×2 (09:00→17:00)
[2018-01-20] MEDS: ASPIRIN 325 MG TAB EC PO SCH (09:00)
[2018-01-20] MEDS: POTASSIUM CHLORIDE 20 MEQ TAB CR PO SCH (09:00)
[2018-01-20] MEDS: HYDROCHLOROTHIAZIDE 25 MG TAB PO SCH (09:00)
[2018-01-20] MEDS: LINAGLIPTIN 5 MG PO SCH (09:00)
[2018-01-20] MEDS: CLONIDINE HCL 0.1 MG TAB PO SCH ×2 (09:00→17:00)
[2018-01-20] MEDS: FOLIC ACID 1 MG TAB PO SCH (09:00)
[2018-01-20] MEDS ORDERED: FENTANYL CITRATE/PF 100MCG/2 ML INJ ONE (09:13)
[2018-01-20] MEDS ORDERED: IOPAMIDOL 300MG/ML 100 ML INFUS..BTL IV ONE (09:13)
[2018-01-20] MEDS ORDERED: HEPARIN SOD/SOD CHLORIDE 2,000 ML ONE (09:13)
[2018-01-20] MEDS ORDERED: MIDAZOLAM HCL 2 MG/2 ML VIAL ONE (09:13)
[2018-01-20] MEDS ORDERED: LIDOCAINE HCL 2% LOCAL 20 ML VIAL ONE (09:13)
[2018-01-20] MEDS ORDERED: SODIUM CHLORIDE 0.9% 1000ML 1,000 ML IV SCH ×2 (09:15→11:37)
[2018-01-20] MEDS ORDERED: VERAPAMIL HCL 2.5 MG/ML 2 ML VIAL ONE (10:01)
[2018-01-20] MEDS ORDERED: NITROGLYCERIN/D5W 200 MCG/ML 250 ML ONE (10:01)
[2018-01-20] MEDS ORDERED: EPTIFIBATIDE 10 ML ONE ×2 (10:06→10:07)
[2018-01-20] MEDS ORDERED: HEPARIN SOD (PORCINE) 1000 UNIT/ML 30ML ONE (10:07)
[2018-01-20] MEDS ORDERED: EPTIFIBATIDE 100 ML ONE (10:07)
[2018-01-20] MEDS ORDERED: SODIUM CHLORIDE 0.9% IV SCH (11:45)
[2018-01-20] MEDS ORDERED: CLOPIDOGREL BISULFATE 75 MG TAB PO ONE ×2 (11:45→12:15)
[2018-01-20] MEDS ORDERED: EPTIFIBATIDE IV SCH (11:45)
[2018-01-20] MEDS: AMLODIPINE BESYLATE 10 MG TAB PO SCH (12:00)
[2018-01-20] MEDS: ATENOLOL 50 MG TAB PO SCH (12:00)
[2018-01-20] MEDS: PREDNISONE 10 MG TAB PO SCH (12:00)
[2018-01-20] MEDS: EPTIFIBATIDE 100 ML IV SCH (12:15)
--- NOTE | 2018-01-20 14:10 | Operative Report ---
DATE OF PROCEDURE: ATTENDING PHYSICIAN: Dr. Tony Espinosa. CLINICAL HISTORY/INDICATION: An 87-year-old white man status post 6 or 7 previous coronary stents and status post previous bypass with at least 4 of the previous 5 bypasses occluded with only single bypass patent, and in this bypass in the LAD the patient already has 2 stents inside the graft and 1 stent in the distal runoff. Patient presented with severe chest pains rated 10 on a scale of 10. CK was still normal, but CK-MB was significantly increased to 9 and troponin was increased to approximately 2. After discussing various diagnostic treatment alternatives, he elected to proceed with repeat cardiac catheterization, possible angioplasty and stenting despite the fact that his creatinine was 1.4. Risks, benefits and alternatives were all explained and understood. PROCEDURE: He was brought to the cardiac catheterization laboratory in a fasting and sedated state. Using aseptic technique, Betadine skin preparation, and lidocaine local anesthesia, the right femoral artery was entered using the modified Seldinger technique. A 4-Welsh sheath was inserted inside this vessel. Diagnostic coronary angiography with graft angiography was carried out using 4-Welsh #4 Andrés catheters. The patient had a new lesion distal to the 2 ostial stents in the graft to the LAD, and we decided to intervene since the lesion was 99% stenosis. The 4-Welsh sheath was then exchanged out for a 6-Welsh sheath, and using a 6-Welsh right Andrés guide we were able to pass a Hi-Torque floppy wire down the LAD graft. The patient was medicated with Integrilin, intracoronary heparin, intracoronary verapamil and nitroglycerin. The stent could not pass. We, therefore, predilated the lesion with a 2.5 x 20 mm balloon. The balloon had difficulty passing, possibly due to the angulation of the ostial stents. Eventually we were able to pass the stent after using a second stent since the first one did not pass. The stent was a 3 x 12 mm stent. Afterward we postdilated with a 3.5 x12 mm balloon. The final results are excellent. All the equipment was then withdrawn. ACT was checked. We plan to pull the sheath when the ACT comes in the correct range. Patient was given 300 mg of Plavix. CONCLUSIONS 1. Recurrent severe stenosis measuring 99% in the proximal portion of the left anterior descending graft distal to the previous 2 ostial stents, successfully treated with angioplasty and medicated stent postdilated to 3.53 mm. 2. Difficulty in passing the proximal stents, possibly due to angulation, with these areas also postdilated to 3.5 mm size. 3. The internal mammary graft is presumably occluded from previous angiography. The graft to the diagonal artery is occluded. The grafts to the obtuse marginal artery and the right coronary artery are also occluded. 4. [place] right coronary artery has 40% to 50% posterior descending artery ostial stenosis, to be treated medically. Job#: [id number] EV cc:TONY ESPINOSA MD
[2018-01-20] MEDS: RIVAROXABAN 10 MG TABLET PO SCH (18:57)
[2018-01-20] MEDS: NITROGLYCERIN/D5W 200 MCG/ML 250 ML IV SCH (19:00)
[2018-01-20] MEDS: ATORVASTATIN 10 MG TAB PO SCH (21:31)
[2018-01-20] MEDS: INSULIN DETEMIR 100 UNIT/ML PEN SQ SCH (21:39)
[2018-01-21] VITALS (66 sets, daily range): BP systolic 90–156; BP diastolic 50–92
[2018-01-21 06:07] LABS: BASOPHILS % 0.2 % (0.0-1.0); EOSINOPHILS % 0.2 % (0.0-6.0); HEMATOCRIT 27.9 % (38.2-49.6); HEMOGLOBIN 8.9 g/dL (14.0-18.0); LYMPHOCYTES % 6.7 % (18.0-39.1); MEAN CORPUSCULAR HGB CONC 31.9 g/dL (31-35); MEAN CORPUSCULAR VOLUME 93.9 fL (81-99); MONOCYTES # (AUTO) 1.4 (0.2-0.8); NEUTROPHILS # (AUTO) 11.9 (2.1-6.9); NEUTROPHILS % 82.3 % (38.7-80.0); PLATELET COUNT 344 x10e3/uL (140-360); RED BLOOD COUNT 2.97 x10e6/uL (4.3-5.7); RED CELL DISTRIBUTION WIDTH 14.5 % (11.7-14.4)
[2018-01-21 06:28] LABS: INR 2.13; PROTHROMBIN TIME 22.4 seconds (11.9-14.5)
[2018-01-21 06:29] LABS: PARTIAL THROMBOPLASTIN TIME 45.6 seconds (23.8-35.5)
[2018-01-21 06:36] LABS: ANION GAP 12.2 mmol/L (8-16); BLOOD UREA NITROGEN 26 mg/dL (7-26); CALCIUM 8.9 mg/dL (8.4-10.2); CARBON DIOXIDE 27 mmol/L (22-29); CHLORIDE 107 mmol/L (98-107); GLUCOSE 61 mg/dL (74-118); POTASSIUM 3.2 mmol/L (3.5-5.1); SODIUM 143 mmol/L (136-145)
[2018-01-21 06:49] LABS: BUN/CREATININE RATIO 24 (6-25); CREATININE, SERUM 1.08 mg/dL (0.72-1.25); EST GLOMERULAR FILTRATION RATE > 60 ML/MIN (60-)
[2018-01-21] MEDS: INSULIN LISPRO 100 UNIT/1 ML 3ML VIAL SQ SCH ×6 (07:30→17:05)
[2018-01-21] MEDS: LINAGLIPTIN 5 MG PO SCH (08:13)
[2018-01-21] MEDS: ASPIRIN 325 MG TAB EC PO SCH (09:00)
[2018-01-21] MEDS: CLOPIDOGREL BISULFATE 75 MG TAB PO SCH (09:00)
[2018-01-21] MEDS: FAMOTIDINE 20 MG TAB PO SCH ×2 (09:48→17:30)
[2018-01-21] MEDS: TAMSULOSIN HCL 0.4 MG CAP PO SCH (09:48)
[2018-01-21] MEDS: CLONIDINE HCL 0.1 MG TAB PO SCH ×2 (09:48→17:30)
[2018-01-21] MEDS: HYDROCHLOROTHIAZIDE 25 MG TAB PO SCH (09:48)
[2018-01-21] MEDS: FOLIC ACID 1 MG TAB PO SCH (09:48)
[2018-01-21] MEDS: DRONEDARONE 400 MG TAB PO SCH ×2 (09:49→17:31)
[2018-01-21] MEDS: ATENOLOL 50 MG TAB PO SCH (09:49)
[2018-01-21] MEDS: PREDNISONE 10 MG TAB PO SCH (09:49)
[2018-01-21] MEDS: POTASSIUM CHLORIDE 20 MEQ TAB CR PO SCH (09:49)
[2018-01-21] MEDS: AMLODIPINE BESYLATE 10 MG TAB PO SCH (09:49)
[2018-01-21] MEDS: EPTIFIBATIDE 100 ML IV SCH (12:15)
[2018-01-21 16:48] LABS: INR 1.83; PROTHROMBIN TIME 19.9 seconds (11.9-14.5)
[2018-01-21] MEDS: NITROGLYCERIN/D5W 200 MCG/ML 250 ML IV SCH (19:00)
[2018-01-21] MEDS: ATORVASTATIN 10 MG TAB PO SCH (20:43)
[2018-01-21] MEDS: INSULIN DETEMIR 100 UNIT/ML PEN SQ SCH (20:45)
[2018-01-21 22:41] LABS: INR 1.61
[2018-01-22] VITALS (43 sets, daily range): BP systolic 97–155; BP diastolic 51–103
[2018-01-22 03:41] LABS: INR 1.52; PROTHROMBIN TIME 17.2 seconds (11.9-14.5)
[2018-01-22 06:14] LABS: BASOPHILS % 0.3 % (0.0-1.0); EOSINOPHILS # (AUTO) 0.2 (0.0-0.4); EOSINOPHILS % 1.2 % (0.0-6.0); HEMATOCRIT 26.4 % (38.2-49.6); HEMOGLOBIN 8.3 g/dL (14.0-18.0); LYMPHOCYTES # (AUTO) 1.2 (1.0-3.2); LYMPHOCYTES % 9.3 % (18.0-39.1); MEAN CORPUSCULAR HEMOGLOBIN 29.9 pg (28-32); MEAN CORPUSCULAR HGB CONC 31.4 g/dL (31-35); MONOCYTES # (AUTO) 1.4 (0.2-0.8); MONOCYTES % 10.8 % (4.4-11.3); NEUTROPHILS # (AUTO) 10.3 (2.1-6.9); NEUTROPHILS % 77.8 % (38.7-80.0); PLATELET COUNT 335 x10e3/uL (140-360); RED BLOOD COUNT 2.78 x10e6/uL (4.3-5.7); RED CELL DISTRIBUTION WIDTH 14.2 % (11.7-14.4)
[2018-01-22 06:35] LABS: ANION GAP 11.9 mmol/L (8-16); BLOOD UREA NITROGEN 27 mg/dL (7-26); BUN/CREATININE RATIO 27 (6-25); CARBON DIOXIDE 25 mmol/L (22-29); CHLORIDE 109 mmol/L (98-107); CREATININE, SERUM 1.01 mg/dL (0.72-1.25); EST GLOMERULAR FILTRATION RATE > 60 ML/MIN (60-); SODIUM 143 mmol/L (136-145)
[2018-01-22 06:45] LABS: GLUCOSE 55 mg/dL (74-118); POTASSIUM 2.9 mmol/L (3.5-5.1)
[2018-01-22] MEDS: INSULIN LISPRO 100 UNIT/1 ML 3ML VIAL SQ SCH ×6 (07:30→17:28)
[2018-01-22 07:43] LABS: INR 1.37; PROTHROMBIN TIME 15.9 seconds (11.9-14.5)
[2018-01-22] MEDS: CLONIDINE HCL 0.1 MG TAB PO SCH ×2 (08:00→17:00)
[2018-01-22] MEDS: TAMSULOSIN HCL 0.4 MG CAP PO SCH (08:00)
[2018-01-22] MEDS: HYDROCHLOROTHIAZIDE 25 MG TAB PO SCH (08:00)
[2018-01-22] MEDS: FAMOTIDINE 20 MG TAB PO SCH ×2 (08:00→17:27)
[2018-01-22] MEDS: FOLIC ACID 1 MG TAB PO SCH (08:00)
[2018-01-22] MEDS: POTASSIUM CHLORIDE 20 MEQ TAB CR PO SCH (08:00)
[2018-01-22] MEDS: DRONEDARONE 400 MG TAB PO SCH ×2 (08:01→17:27)
[2018-01-22] MEDS: PREDNISONE 10 MG TAB PO SCH (08:01)
[2018-01-22] MEDS: ATENOLOL 50 MG TAB PO SCH (08:01)
[2018-01-22] MEDS: AMLODIPINE BESYLATE 10 MG TAB PO SCH (08:01)
[2018-01-22] MEDS: LINAGLIPTIN 5 MG PO SCH (09:00)
[2018-01-22] MEDS ORDERED: MORPHINE SULFATE 2 MG/ML SYR ONE (09:04)
[2018-01-22] MEDS ORDERED: ONDANSETRON HCL INJ 2 MG/ML VIAL ONE (09:06)
[2018-01-22] MEDS ORDERED: MORPHINE SULFATE 2 MG/ML SYR IV ONE (09:30)
[2018-01-22] MEDS ORDERED: POTASSIUM CHLORIDE 20 MEQ TAB CR PO ONE (10:30)
[2018-01-22] MEDS: CLOPIDOGREL BISULFATE 75 MG TAB PO SCH (12:29)
[2018-01-22] MEDS ORDERED: RIVAROXABAN 10 MG TABLET PO SCH (17:00)
[2018-01-22] MEDS: RIVAROXABAN 10 MG TABLET PO SCH (17:27)
[2018-01-22] MEDS: NITROGLYCERIN/D5W 200 MCG/ML 250 ML IV SCH (19:00)
[2018-01-22] MEDS: ATORVASTATIN 10 MG TAB PO SCH (21:00)
[2018-01-22] MEDS: INSULIN DETEMIR 100 UNIT/ML PEN SQ SCH (21:00)
[2018-01-23] VITALS (27 sets, daily range): BP systolic 48–131; BP diastolic 24–114
[2018-01-23] MEDS: INSULIN LISPRO 100 UNIT/1 ML 3ML VIAL SQ SCH ×6 (07:30→16:30)
[2018-01-23] MEDS: CLONIDINE HCL 0.1 MG TAB PO SCH ×2 (09:00→17:00)
[2018-01-23] MEDS: LINAGLIPTIN 5 MG PO SCH (09:00)
[2018-01-23] MEDS: FAMOTIDINE 20 MG TAB PO SCH ×2 (09:14→16:30)
[2018-01-23] MEDS: TAMSULOSIN HCL 0.4 MG CAP PO SCH (09:15)
[2018-01-23] MEDS: FOLIC ACID 1 MG TAB PO SCH (09:15)
[2018-01-23] MEDS: HYDROCHLOROTHIAZIDE 25 MG TAB PO SCH (09:15)
[2018-01-23] MEDS: PREDNISONE 10 MG TAB PO SCH (09:16)
[2018-01-23] MEDS: ATENOLOL 50 MG TAB PO SCH (09:16)
[2018-01-23] MEDS: DRONEDARONE 400 MG TAB PO SCH ×2 (09:16→17:00)
[2018-01-23] MEDS: POTASSIUM CHLORIDE 20 MEQ TAB CR PO SCH (09:16)
[2018-01-23] MEDS: CLOPIDOGREL BISULFATE 75 MG TAB PO SCH (09:16)
[2018-01-23] MEDS: AMLODIPINE BESYLATE 10 MG TAB PO SCH (09:16)
[2018-01-23] MEDS ORDERED: ASPIRIN 81 MG CHEW TAB PO ONE ×2 (12:30→15:45)
[2018-01-23] MEDS ORDERED: MAGNESIUM HYDROXIDE 30 ML UDC PO ONE (13:30)
[2018-01-23] MEDS ORDERED: RIVAROXABAN 10 MG TABLET PO ONE ×2 (13:30)
[2018-01-23 13:49] LABS: CREATINE KINASE MB 2.7 ng/mL (0-5.0)
[2018-01-23 15:26] LABS: ANION GAP 17.4 mmol/L (8-16); CALCIUM 8.9 mg/dL (8.4-10.2); CREATININE, SERUM 1.88 mg/dL (0.72-1.25)
[2018-01-23 15:36] LABS: POTASSIUM 7.4 mmol/L (3.5-5.1)
[2018-01-23 15:54] LABS: BASOPHILS # (AUTO) 0.1 (0.0-0.1); BASOPHILS % 0.4 % (0.0-1.0); EOSINOPHILS # (AUTO) 0.2 (0.0-0.4); EOSINOPHILS % 1.6 % (0.0-6.0); HEMATOCRIT 27.8 % (38.2-49.6); HEMOGLOBIN 8.4 g/dL (14.0-18.0); LYMPHOCYTES # (AUTO) 1.1 (1.0-3.2); LYMPHOCYTES % 7.3 % (18.0-39.1); MEAN CORPUSCULAR HGB CONC 30.2 g/dL (31-35); MEAN CORPUSCULAR VOLUME 99.3 fL (81-99); MONOCYTES # (AUTO) 1.7 (0.2-0.8); MONOCYTES % 11.5 % (4.4-11.3); NEUTROPHILS # (AUTO) 11.6 (2.1-6.9); NEUTROPHILS % 78.2 % (38.7-80.0); PLATELET COUNT 389 x10e3/uL (140-360); RED CELL DISTRIBUTION WIDTH 14.3 % (11.7-14.4)
[2018-01-23 15:58] LABS: INR 3.28; PROTHROMBIN TIME 31.4 seconds (11.9-14.5)
[2018-01-23] MEDS ORDERED: ONDANSETRON HCL 4 MG ORAL DISINTEGRATING TAB PO ONE (16:00)
--- NOTE | 2018-01-23 16:14 | Diagnostic Imaging Report ---
EXAM: Abdomen, one view INDICATION: Pain. COMPARISON: Abdomen one view 01/14/2017. FINDINGS: LINES: None. Bowel: No air fluid levels.. No pneumoperitoneum.. Moderate amount of retained feces and air are noted in the colon and rectum. No calcifications project over the renal shadows, expected course of the ureters bilaterally, and bladder. Soft tissues: Normal. Bones: No acute osseous abnormality. Degenerative changes of the lumbar spine and pelvis. Impression: No acute radiographic abnormality. Signed by: Dr. Eamon Viera M.D. on 01/23/2018 4:11 PM
[2018-01-23] MEDS ORDERED: SODIUM BICARBONATE 8.4% SYRING 50 ML ONE ×2 (16:26→17:22)
[2018-01-23 16:32] LABS: ABG PCO2 35 mmHg (41-51); ABG PH 7.29 (7.31-7.41); ABG PO2 67 mmHg (80-105)
[2018-01-23 16:33] LABS: ABG HCO3 17 mmol/L (23-28)
[2018-01-23] MEDS ORDERED: SOD POLYSTYRENE SULFONATE SUSP 15 GM/60 ML BTL PO ONE (17:00)
[2018-01-23] MEDS ORDERED: SODIUM CHLORIDE 0.9% 1000ML 1,000 ML IV SCH (17:00)
[2018-01-23] MEDS: RIVAROXABAN 10 MG TABLET PO SCH (17:00)
[2018-01-23] MEDS ORDERED: CALCIUM GLUCONATE 10% INJ 0.465 MEQ/ML VIAL ONE (17:21)
[2018-01-23] MEDS ORDERED: DEXTROSE 50% SYRINGE 50 ML IV ONE ×2 (17:21→19:00)
[2018-01-23] MEDS ORDERED: INSULIN REGULAR, HUMAN 100 UNIT/1 ML 3ML VIAL ONE (17:22)
[2018-01-23 17:24] LABS: ALBUMIN 2.6 g/dL (3.5-5.0); ALBUMIN/GLOBULIN RATIO 0.8 (0.8-2.0); ANION GAP 21.7 mmol/L (8-16); CREATININE, SERUM 2.1 mg/dL (0.72-1.25)
[2018-01-23 17:29] LABS: POTASSIUM 7.7 mmol/L (3.5-5.1)
--- NOTE | 2018-01-23 17:30 | Diagnostic Imaging Report ---
EXAMINATION: Chest, CHEST SINGLE (PORTABLE) INDICATION: Chest pain COMPARISON: Portable chest 01/17/2018 FINDINGS: LINES: None. Heart: Normal cardiac silhouette. Vascular: The pulmonary vasculature is within normal limits. Atherosclerotic calcifications of the aortic arch. Mediastinum: No mediastinal, hilar, or axillary mass or lymphadenopathy. Lungs: No parenchymal mass. No focal consolidation. Bibasilar atelectasis. Pleura: No pleural effusion. No pneumothorax. Bones: No acute osseous abnormality. Degenerative changes of the thoracic spine. Median sternotomy wires. Soft tissues: Normal. Impression: No acute radiographic abnormality. Signed by: Dr. Eamon Viera M.D. on 01/23/2018 5:26 PM
[2018-01-23] MEDS ORDERED: SOD POLYSTYRENE SULFONATE SUSP 15 GM/60 ML BTL ONE (17:36)
[2018-01-23] MEDS ORDERED: ALBUTEROL SULF 0.083% NEB SOLN 3 ML NEB ONE (17:37)
[2018-01-23] MEDS: SODIUM CHLORIDE 0.9% 1000ML 1,000 ML IV SCH (18:16)
[2018-01-23] MEDS ORDERED: ALBUTEROL SULF 0.083% NEB SOLN 3 ML NEB NEB ONE (18:30)
[2018-01-23] MEDS ORDERED: SODIUM BICARBONATE 8.4% 50 ML VIAL IV STA (18:48)
[2018-01-23] MEDS ORDERED: ONDANSETRON HCL INJ 2 MG/ML VIAL ONE (18:51)
[2018-01-23] MEDS: NITROGLYCERIN/D5W 200 MCG/ML 250 ML IV SCH (19:00)
[2018-01-23] MEDS ORDERED: SODIUM BICARBONATE 4.2% 10 ML SYRINGE IV ONE (19:00)
[2018-01-23] MEDS ORDERED: CALCIUM GLUCONATE 10% INJ 4.65 MEQ in SODIUM CHLORIDE 0.9% 50ML 50 ML IV ONE (19:00)
[2018-01-23] MEDS ORDERED: INSULIN REGULAR, HUMAN 100 UNIT/1 ML 3ML VIAL SQ ONE (19:00)
[2018-01-23] MEDS: SOD POLYSTYRENE SULFONATE SUSP 15 GM/60 ML BTL PR SCH ×3 (19:20→22:00)
[2018-01-23] MEDS ORDERED: SODIUM BICARBONATE 8.4% 50 ML VIAL IV ONE (19:30)
[2018-01-23] MEDS ORDERED: SODIUM BICARBONATE 8.4% IV ONE (20:00)
[2018-01-23] MEDS ORDERED: DEXTROSE 5% IV ONE (20:00)
[2018-01-23] MEDS ORDERED: HYDROMORPHONE 1MG/1ML INJ IV PRN (20:30)
[2018-01-23] MEDS ORDERED: ONDANSETRON HCL INJ 2 MG/ML VIAL IV PRN (20:30)
[2018-01-23] MEDS: ATORVASTATIN 10 MG TAB PO SCH (20:56)
[2018-01-23] MEDS: INSULIN DETEMIR 100 UNIT/ML PEN SQ SCH (21:24)
[2018-01-23] MEDS: CEFEPIME HCL 1 GM VIAL IV SCH (22:00)
[2018-01-23] MEDS ORDERED: NALOXONE HCL 2MG/2 ML SYRINGE ONE (22:37)
[2018-01-24] VITALS (107 sets, daily range): BP systolic 67–139; BP diastolic 29–103
[2018-01-24] MEDS ORDERED: NALOXONE HCL 2MG/2 ML SYRINGE IV ONE (00:15)
[2018-01-24 00:48] LABS: CREATINE KINASE MB 3.5 ng/mL (0-5.0)
[2018-01-24] MEDS ORDERED: CALCIUM GLUCONATE 10% INJ 0.465 MEQ/ML VIAL ONE ×5 (01:28→11:50)
[2018-01-24] MEDS ORDERED: DEXTROSE 50% SYRINGE 50 ML IV ONE ×3 (01:28→18:45)
[2018-01-24] MEDS ORDERED: FUROSEMIDE INJ 10 MG/ML 4 ML VIAL ONE ×2 (01:28→11:40)
[2018-01-24] MEDS ORDERED: DEXTROSE 50% SYRINGE 50 ML IV STA (01:34)
[2018-01-24] MEDS ORDERED: ALBUTEROL SULF 0.083% NEB SOLN 3 ML NEB NEB STA (01:34)
[2018-01-24] MEDS ORDERED: ALBUTEROL SULF 0.083% NEB SOLN 3 ML NEB ONE ×2 (01:36→07:05)
[2018-01-24] MEDS ORDERED: FUROSEMIDE INJ 10 MG/ML 4 ML VIAL IV ONE ×4 (01:45→18:45)
[2018-01-24 02:24] LABS: ANION GAP 30.4 mmol/L (8-16); CALCIUM 8.5 mg/dL (8.4-10.2); CREATININE, SERUM 2.6 mg/dL (0.72-1.25)
[2018-01-24 02:32] LABS: POTASSIUM 8.4 mmol/L (3.5-5.1)
[2018-01-24] MEDS ORDERED: SOD POLYSTYRENE SULFONATE SUSP 15 GM/60 ML BTL NG ONE (04:30)
--- NOTE | 2018-01-24 04:30 | Diagnostic Imaging Report ---
ADDENDUM #1 EXAMINATION: ABDOMEN-1VIEW (KUB) INDICATION: NG tube placement COMPARISON: 01/23/2018 FINDINGS: TUBES and LINES: NG tube is visualized with distal tip overlying the region of the left upper quadrant in the region of the gastric fundus. ABDOMEN: No free air under the diaphragm. LUNG BASES: The lung bases demonstrate mild edema and moderate cardiomegaly. IMPRESSION: 1. NG tube in good position. 2. Cardiogenic pulmonary edema is worsening. Signed by: Dr. Devin Lopes M.D. on 01/24/2018 4:37 AM ORIGINAL REPORT EXAMINATION: ABDOMEN-1VIEW (KUB) INDICATION: PIC line placement COMPARISON: 01/23/2018 FINDINGS: TUBES and LINES: The pacemaker is intact. Right upper extremity PICC line is now visualized with distal tip at the level of the proximal SVC. Advancement of about 2 cm is recommended LUNGS: Lungs are not well inflated. There are bibasilar atelectasis. There is perihilar interstitial opacities, consistent with interstitial edema. PLEURA: Small right pleural effusion is present. HEART AND MEDIASTINUM: Cardiac size is mildly enlarged. There are atherosclerotic calcifications within the aorta. Midline sternotomy wires are stable. BONES AND SOFT TISSUES: No acute osseous lesion. Soft tissues are unremarkable. UPPER ABDOMEN: No free air under the diaphragm. IMPRESSION: 1. Right upper extremity PICC line is visualized with tip at the proximal SVC. Mild advancement recommended. 2. Cardiogenic pulmonary edema is worsening. Signed by: Dr. Devin Lopes M.D. on 01/24/2018 4:26 AM
[2018-01-24] MEDS: POTASSIUM CHLORIDE 20 MEQ TAB CR PO SCH (04:31)
[2018-01-24] MEDS: CLOPIDOGREL BISULFATE 75 MG TAB PO SCH (04:32)
--- NOTE | 2018-01-24 04:39 | Diagnostic Imaging Report ---
EXAMINATION: CHEST XRAY LINE PLACEMENT INDICATION: Left upper extremity PICC line placement. COMPARISON: 01/24/2018 at 0332 hours FINDINGS: TUBES and LINES: Left upper examination PICC line is visualized with tip at the origin of the SVC. NG tube is visualized in good position. LUNGS: Lungs are not well inflated. There are bibasilar atelectasis. There is perihilar interstital opacities, consistent with interstitial edema. PLEURA: No pleural effusion or pneumothorax. HEART AND MEDIASTINUM: Cardiac size is mildly enlarged. There are atherosclerotic calcifications within the aorta. BONES AND SOFT TISSUES: No acute osseous lesion. Soft tissues are unremarkable. UPPER ABDOMEN: No free air under the diaphragm. IMPRESSION: 1. Findings are compatible with mild paralytic pulmonary edema and bilateral pleural effusions. 2. Left upper extent of the PICC line in suboptimal position. Advancement x 2 cm is recommended Signed by: Dr. Devin Lopes M.D. on 01/24/2018 4:35 AM
[2018-01-24 05:39] LABS: BASOPHILS % 0.2 % (0.0-1.0); HEMATOCRIT 25.8 % (38.2-49.6); HEMOGLOBIN 7.5 g/dL (14.0-18.0); LYMPHOCYTES # (AUTO) 0.6 (1.0-3.2); LYMPHOCYTES % 2.4 % (18.0-39.1); MEAN CORPUSCULAR HEMOGLOBIN 29.9 pg (28-32); MEAN CORPUSCULAR HGB CONC 29.1 g/dL (31-35); MEAN CORPUSCULAR VOLUME 102.8 fL (81-99); MONOCYTES # (AUTO) 2.2 (0.2-0.8); MONOCYTES % 8.4 % (4.4-11.3); NEUTROPHILS # (AUTO) 21.7 (2.1-6.9); NEUTROPHILS % 85.3 % (38.7-80.0); PLATELET COUNT 243 x10e3/uL (140-360); RED BLOOD COUNT 2.51 x10e6/uL (4.3-5.7); RED CELL DISTRIBUTION WIDTH 14.3 % (11.7-14.4)
[2018-01-24 05:52] LABS: PARTIAL THROMBOPLASTIN TIME 37.1 seconds (23.8-35.5)
[2018-01-24 05:55] LABS: INR 8.34
[2018-01-24 06:01] LABS: ALBUMIN 2.3 g/dL (3.5-5.0); ALBUMIN/GLOBULIN RATIO 0.8 (0.8-2.0); ANION GAP 32.1 mmol/L (8-16); CALCIUM 9.1 mg/dL (8.4-10.2); CREATININE, SERUM 3.16 mg/dL (0.72-1.25); MAGNESIUM 2.2 MG/DL (1.3-2.1); PHOSPHORUS 7.5 MG/DL (2.3-4.7)
[2018-01-24 06:41] LABS: POTASSIUM 8.1 mmol/L (3.5-5.1)
[2018-01-24] MEDS ORDERED: FUROSEMIDE INJ 10 MG/ML 2 ML VIAL ONE (06:48)
[2018-01-24] MEDS ORDERED: NOREPINEPHRINE 8 MG/D5W 250 ML 250 ML ONE (07:07)
[2018-01-24] MEDS: FAMOTIDINE 20 MG TAB PO SCH ×2 (07:30→16:30)
[2018-01-24] MEDS: INSULIN LISPRO 100 UNIT/1 ML 3ML VIAL SQ SCH ×4 (07:30→11:30)
[2018-01-24] MEDS ORDERED: PHYTONADIONE 10 MG/ML AMP IV ONE (07:45)
[2018-01-24] MEDS ORDERED: NOREPINEPHRINE INJ 4MG/4ML 8 MG in DEXTROSE 5% 250ML 250 ML IV SCH (08:00)
[2018-01-24 08:13] LABS: CREATINE KINASE MB 3.4 ng/mL (0-5.0)
[2018-01-24] MEDS ORDERED: SODIUM BICARBONATE 8.4% SYRING 100 ML ONE ×2 (08:21→08:43)
[2018-01-24] MEDS ORDERED: DEXTROSE 5% 1,000 ML IV ONE (08:21)
[2018-01-24] MEDS ORDERED: PHYTONADIONE 10MG/ML 10 MG in SODIUM CHLORIDE 0.9% 50ML 50 ML IV ONE (08:30)
[2018-01-24] MEDS: CLONIDINE HCL 0.1 MG TAB PO SCH ×2 (08:54→17:00)
[2018-01-24] MEDS: LINAGLIPTIN 5 MG PO SCH (09:00)
[2018-01-24] MEDS: HYDROCHLOROTHIAZIDE 25 MG TAB PO SCH (09:00)
[2018-01-24] MEDS: DRONEDARONE 400 MG TAB PO SCH ×2 (09:00→17:00)
[2018-01-24] MEDS ORDERED: SODIUM CHLORIDE 0.9% 250ML 250 ML IV ONE (09:00)
[2018-01-24] MEDS: FOLIC ACID 1 MG TAB PO SCH (09:00)
[2018-01-24] MEDS: PREDNISONE 10 MG TAB PO SCH (09:00)
[2018-01-24] MEDS: TAMSULOSIN HCL 0.4 MG CAP PO SCH (09:00)
[2018-01-24] MEDS ORDERED: DEXTROSE 5% 1,000 ML IV SCH (09:15)
--- NOTE | 2018-01-24 09:20 | Consultation ---
DATE OF CONSULTATION: January 24, 2018 RENAL CONSULTATION REASON FOR CONSULTATION: Hyperkalemia. ADMITTING PHYSICIAN: Dr. Jimenez HISTORY OF PRESENT ILLNESS: [id number]old male with history of stage 3 chronic kidney disease, diabetes, hypertension, congestive heart failure, and CVA, who presented on January 17, 2018 with chest pain. Patient was seen by cardiology and underwent cardiac catheterization on January 20, 2018. Patient this morning had potassium of 2.9, which was replaced. Repeat potassium this afternoon was 7.4 and again potassium was repeated and was 8.2. Patient became bradycardic, and nephrology consultation was called at 1:15 a.m. on January 24, 2018. On my arrival, patient was bradycardic, hypotensive with family at bedside, on BiPAP and unresponsive. REVIEW OF SYSTEMS: As above, otherwise unable to obtain. PAST MEDICAL HISTORY: 1. Chronic kidney disease stage 3, follows with Dr. Wood. 2. Coronary artery disease. 3. Hypertension. 4. History of CVA. 5. Diabetes. 6. Dyslipidemia. 7. Pulmonary hypertension. 8. Atrial fibrillation. PAST SURGICAL HISTORY: 1. CABG. 2. Coronary artery stenting. SOCIAL HISTORY: No tobacco, no alcohol. FAMILY HISTORY: Congestive heart failure. No kidney disease. ALLERGIES: PENICILLIN. CURRENT MEDICATIONS: See list, included potassium chloride, insulin, Plavix, prednisone, hydrochlorothiazide. PHYSICAL EXAMINATION: VITAL SIGNS: Blood pressure was 80/61; heart rate 67, on my arrival heart rate was in the 20s with systolic blood pressure of 66; temperature 96.6; respiratory rate 12. GENERAL: In no apparent distress. HEENT: Oropharynx difficult to evaluate on BiPAP. NECK: Supple. No elevation of jugular venous pressure. CHEST: Decreased breath sounds at bases anteriorly. CARDIOVASCULAR: Bradycardic. No murmurs or rubs. ABDOMEN: Soft. Positive bowel sounds. No tenderness, no rebound. EXTREMITIES: 1+ edema. LABS: Sodium 134; potassium 7.4, repeat 8.2; BUN 46; creatinine 2.10; chloride 103; CO2 21. Troponin 0.314. Albumin 2.6. White count 14.8, hemoglobin 8.4, hematocrit 27.8. IMAGING: Chest x-ray January 23 is clear. ASSESSMENT AND PLAN: 1. Acute kidney injury with hyperkalemia. Patient has received medical therapy and his hyperkalemia has worsened. Will try and stabilize the patient with insulin, calcium, dextrose, albuterol nebulizers, and discuss emergency hemodialysis with family members at bedside as patient has failed medical therapy. Will discontinue potassium chloride and start patient on dopamine for blood pressure control. 2. Hypotension and bradycardia. Cardiology following. Will start dopamine, intravenous fluids. 3. Respiratory failure, on bilevel positive airway pressure. May require intubation. 4. Hypertension. Patient hypotensive. Will start dopamine as above. Patient is critically ill. Prognosis poor. Job#: [id number]
[2018-01-24 09:24] LABS: PROTHROMBIN TIME 73.9 seconds (11.9-14.5)
[2018-01-24 09:25] LABS: PARTIAL THROMBOPLASTIN TIME 52.2 seconds (23.8-35.5)
[2018-01-24 09:31] LABS: INR 9.82
[2018-01-24 09:32] LABS: BAND NEUTROPHILS % (MANUAL) 3 %; LYMPHOCYTES % (MANUAL) 5 % (19-48); MONOCYTES % (MANUAL) 4 % (3.4-9.0); MYELOCYTES % (MANUAL) 2 % (0-0); NEUTROPHILS % (MANUAL) 85 % (40-74); PROMYELOCYTES % (MANUAL) 1 % (0-0)
[2018-01-24 09:33] LABS: ANISOCYTOSIS SLIGHT; HYPOCHROMASIA MODERATE; PLATELET ESTIMATE ADEQUATE; PLATELET MORPHOLOGY COMMENT NORMAL; POIKILOCYTOSIS SLIGHT; RBC MORPHOLOGY COMMENT NORMAL
[2018-01-24 09:49] LABS: BASOPHILS % 0.1 % (0.0-1.0); HEMATOCRIT 23.5 % (38.2-49.6); LYMPHOCYTES # (AUTO) 0.5 (1.0-3.2); LYMPHOCYTES % 2.1 % (18.0-39.1); MEAN CORPUSCULAR HEMOGLOBIN 30.2 pg (28-32); MEAN CORPUSCULAR HGB CONC 29.8 g/dL (31-35); MEAN CORPUSCULAR VOLUME 101.3 fL (81-99); MONOCYTES # (AUTO) 1.5 (0.2-0.8); MONOCYTES % 5.9 % (4.4-11.3); NEUTROPHILS # (AUTO) 22.5 (2.1-6.9); NEUTROPHILS % 89.1 % (38.7-80.0); RED BLOOD COUNT 2.32 x10e6/uL (4.3-5.7); RED CELL DISTRIBUTION WIDTH 14.2 % (11.7-14.4)
[2018-01-24 09:59] LABS: ABG HCO3 10 mmol/L (23-28); ABG PCO2 32 mmHg (41-51); ABG PH 7.09 (7.31-7.41); ABG PO2 88 mmHg (80-105)
[2018-01-24 10:00] LABS: PLATELET COUNT 191 x10e3/uL (140-360)
[2018-01-24] MEDS ORDERED: INSULIN REGULAR, HUMAN 100 UNIT/1 ML 3ML VIAL IV ONE ×3 (10:00→18:45)
[2018-01-24 10:09] LABS: ALBUMIN 2.1 g/dL (3.5-5.0); ALBUMIN/GLOBULIN RATIO 0.8 (0.8-2.0); ANION GAP 30.1 mmol/L (8-16); CALCIUM 8.9 mg/dL (8.4-10.2); CREATININE, SERUM 3.22 mg/dL (0.72-1.25); MAGNESIUM 2.1 MG/DL (1.3-2.1); PHOSPHORUS 7.3 MG/DL (2.3-4.7)
[2018-01-24 10:11] LABS: POTASSIUM 6.1 mmol/L (3.5-5.1)
[2018-01-24] MEDS ORDERED: SODIUM BICARBONATE 8.4% SYRING 150 ML in STERILE WATER IV SOLN 1,000 ML IV SCH ×2 (11:15→12:00)
[2018-01-24] MEDS ORDERED: SODIUM BICARBONATE 8.4% 150 ML in DEXTROSE 5% 1,000 ML IV ONE (11:30)
--- NOTE | 2018-01-24 11:41 | Consultation ---
DATE OF CONSULTATION: January 24, 2018 CONSULTATION TO: Dr. Veliz. Mr. You is an 87-year-old white male who has been referred to me for evaluation of coagulopathy with INR of more than 8. The patient is hypotensive. The patient's heart rate has been about 12. The patient is at the present time no code. Most of the history has been obtained from my personal communication with the patient's family. The patient had presented with weakness and shortness of breath. HISTORY OF PAST ILLNESSES 1. History of chronic renal failure. 2. History of coronary artery disease. 3. History of hypertension. 4. History of CVA. 5. History of diabetes. 6. History of hyperlipidemia. 7. History of atrial fibrillation. SOCIAL HISTORY: Could not be obtained. FAMILY HISTORY: Could not be obtained. ALLERGIES: REPORTED PENICILLIN. MEDICATIONS AT THIS TIME 1. Nitroglycerin. 2. Dextrose. 3. Clonidine. 4. Potassium. 5. Xarelto. 6. Ondansetron. 7. Dronedarone. 8. Prednisone. 9. Insulin. 10. Cefepime. 11. Amlodipine. 12. Folic acid. 13. Flomax. 14. Pepcid. 15. Sodium polystyrene sulfonate. 16. Atorvastatin. 17. Hydrochlorothiazide. 18. Plavix. 19. Hydromorphone. REVIEW OF SYSTEMS HEENT: Normal. CARDIAC: Hypertension, hyperlipidemia, atrial fibrillation. RESPIRATORY: At the present time, the patient is in congestive heart failure on rebreather mask. PHYSICAL EXAMINATION VITALS: The heart rate when I was called was 12 per minute. However, the rate now is 72 per minute. The blood pressure is 100/48. LUNGS: Rales. ABDOMEN: Soft. RECTAL: Exam deferred. CENTRAL NERVOUS SYSTEM: Could not be examined. LABS: Investigations of interest show a hemoglobin of 7. His baseline was 8.9. Hematocrit 23.5 and white count of 25,200. Platelets are reported at 191,000. However, the platelets were as high as 344,000. Chemistry at the present time shows the potassium to be 3.2. However, on 01/23/2018, it went up to 7.4. BUN and creatinine are 44 and 1.88. Glucose has ranged between 81 and 212. BNP is high. Chest x-ray shows bilateral bronchopneumonia. IMPRESSION 1. Anemia of chronic disease. 2. Leukemoid reaction. 3. Drop in the platelets to 191,000. 4. Coagulopathy, acquired, with international normalization ratio of 9.8. 5. Chronic renal failure. 6. Hyperkalemia. 7. Hypoalbuminemia. 8. Hypoproteinemia. 9. Congestive heart failure. 10. Bilateral bronchopneumonia. 11. Coronary artery disease. 12. History of cerebrovascular accident. 13. History of diabetes mellitus. 14. Pulmonary hypertension. 15. Atrial fibrillation. 16. Hyperlipidemia. 17. Septic shock. PLAN, COMMENTS AND SUGGESTIONS: I will confine myself to hematology only. The patient will be given vitamin K as well as fresh frozen plasma. It has to be noted that Xarelto will also raise the INR. Xarelto should be discontinued as there is no antidote for Xarelto at this time. The only thing which could be given would be Amicar. However, the dose of Amicar will be very high at least 24 grams in 500 mL of saline since he is in congestive heart failure. He is on dopamine as this time. Since he is a no code, I would avoid aggressive supportive care suggested to an 87-year-old with multiple comorbidities and a no code. I have discussed this with the patient's son and daughter. Job#: [id number] cc:MD YEVGENIY BERRY MD STEVE HADDAD, MD MALAK ELRAHI, MD
[2018-01-24] MEDS ORDERED: INSULIN REGULAR, HUMAN 100 UNIT/1 ML 3ML VIAL ONE (11:50)
[2018-01-24] MEDS ORDERED: ALBUMIN 5% 250ML IV SCH (12:00)
[2018-01-24] MEDS ORDERED: CALCIUM GLUCONATE 10% INJ 4.65 MEQ in SODIUM CHLORIDE 0.9% 50ML 50 ML IV ONE (13:00)
[2018-01-24] MEDS: SODIUM CHLORIDE 0.9% 1000ML 1,000 ML IV SCH (13:00)
[2018-01-24 13:37] LABS: BASOPHILS % 0.1 % (0.0-1.0); LYMPHOCYTES # (AUTO) 0.4 (1.0-3.2); LYMPHOCYTES % 1.7 % (18.0-39.1); MEAN CORPUSCULAR HEMOGLOBIN 30.7 pg (28-32); MEAN CORPUSCULAR HGB CONC 30.5 g/dL (31-35); MEAN CORPUSCULAR VOLUME 100.4 fL (81-99); MONOCYTES % 3.8 % (4.4-11.3); NEUTROPHILS # (AUTO) 23.6 (2.1-6.9); NEUTROPHILS % 93.3 % (38.7-80.0); PLATELET COUNT 141 x10e3/uL (140-360); RED BLOOD COUNT 2.25 x10e6/uL (4.3-5.7); RED CELL DISTRIBUTION WIDTH 14.1 % (11.7-14.4)
[2018-01-24 13:45] LABS: HEMATOCRIT 22.6 % (38.2-49.6); HEMOGLOBIN 6.9 g/dL (14.0-18.0)
[2018-01-24 13:48] LABS: PARTIAL THROMBOPLASTIN TIME 48.5 seconds (23.8-35.5); PROTHROMBIN TIME 55.2 seconds (11.9-14.5)
[2018-01-24 13:50] LABS: INR 6.76
[2018-01-24 13:57] LABS: ALBUMIN 2.9 g/dL (3.5-5.0); ANION GAP 27.4 mmol/L (8-16); CALCIUM 9.5 mg/dL (8.4-10.2); CREATININE, SERUM 3.36 mg/dL (0.72-1.25); MAGNESIUM 2.1 MG/DL (1.3-2.1); POTASSIUM 5.4 mmol/L (3.5-5.1)
[2018-01-24] MEDS: SOD POLYSTYRENE SULFONATE SUSP 15 GM/60 ML BTL NG SCH ×3 (14:00→18:42)
[2018-01-24] MEDS ORDERED: SODIUM BICARBONATE 8.4% SYRING 50 ML ONE ×2 (14:34→14:38)
[2018-01-24] MEDS ORDERED: SODIUM BICARBONATE 8.4% INJ 50 ML SYR IV ONE (14:45)
[2018-01-24] MEDS: ALBUMIN 25% 25GM 100 ML IV SCH ×2 (15:54→19:03)
[2018-01-24] MEDS: RIVAROXABAN 10 MG TABLET PO SCH (17:00)
--- NOTE | 2018-01-24 17:15 | Diagnostic Imaging Report ---
EXAM: Renal Duplex Ultrasound INDICATION: RADHA. R/O RENAL ARTERY STENOSIS/THROMBOSIS. WITH DOPPLER COMPARISON: None TECHNIQUE: Color Doppler and waveform spectral analysis were obtained of the right and left kidneys. FINDINGS: Examination markedly limited due to patient's inability to cooperate. Aorta PSV = 66.7 cm/sec maximally at the celiac axis and SMA origin. Right Kidney: Length: 9.6 cm Appearance: Normal echogenicity. Collecting system: No hydronephrosis Stones: None Cyst/Mass: None Main renal artery PSV: Proximal = 42.9 cm/sec Mid = 53.9 cm/sec Distal = 28.8 cm/sec Intrarenal (segmental or interlobar) arteries: Acceleration time: Normal Resistive index: Normal RA PSV/aorta PSV ratio (RAR) = 0.8 Left Kidney: Length: 9.7 cm Appearance: Normal echogenicity. Collecting system: No hydronephrosis Stones: None Cyst/Mass: None Main renal artery PSV: Proximal = 36.4 cm/sec Mid = 29.5 cm/sec Distal = 28.9 cm/sec Intrarenal (segmental or interlobar) arteries: Acceleration time: Normal Resistive index: Normal RA PSV/aorta PSV ratio (RAR) = 0.7 Main Renal Veins: Flow Present IMPRESSION: No evidence of renal artery stenosis or renal thrombosis despite technical limitations. Signed by: Dr. Tanya Chan M.D. on 01/24/2018 5:12 PM
[2018-01-24 17:21] LABS: BASOPHILS % 0.1 % (0.0-1.0); HEMATOCRIT 24.1 % (38.2-49.6); HEMOGLOBIN 7.5 g/dL (14.0-18.0); LYMPHOCYTES # (AUTO) 0.7 (1.0-3.2); LYMPHOCYTES % 3.2 % (18.0-39.1); MEAN CORPUSCULAR HEMOGLOBIN 30.2 pg (28-32); MEAN CORPUSCULAR HGB CONC 31.1 g/dL (31-35); MEAN CORPUSCULAR VOLUME 97.2 fL (81-99); MONOCYTES % 4.6 % (4.4-11.3); NEUTROPHILS % 91.2 % (38.7-80.0); PLATELET COUNT 91 x10e3/uL (140-360); RED BLOOD COUNT 2.48 x10e6/uL (4.3-5.7); RED CELL DISTRIBUTION WIDTH 14.4 % (11.7-14.4)
[2018-01-24 17:35] LABS: PARTIAL THROMBOPLASTIN TIME 48.1 seconds (23.8-35.5)
[2018-01-24 17:38] LABS: INR 7.11; PROTHROMBIN TIME 57.4 seconds (11.9-14.5)
[2018-01-24 17:40] LABS: ANION GAP 28.1 mmol/L (8-16); CALCIUM 10.1 mg/dL (8.4-10.2); CREATININE, SERUM 3.69 mg/dL (0.72-1.25); MAGNESIUM 2.5 MG/DL (1.3-2.1); PHOSPHORUS 7.3 MG/DL (2.3-4.7)
[2018-01-24 17:46] LABS: POTASSIUM 6.1 mmol/L (3.5-5.1)
[2018-01-24] MEDS ORDERED: METRONIDAZOLE 500MG/NS 100ML 100 ML IV SCH (18:45)
[2018-01-24] MEDS ORDERED: ALBUMIN 25% 12.5GM 50 ML IV ONE ×2 (18:47→18:55)
[2018-01-24 18:54] LABS: AMYLASE 138 U/L (25-125); LIPASE 137 U/L (8-78)
--- NOTE | 2018-01-24 20:32 | Consultation ---
DATE OF CONSULTATION: REASON FOR CONSULTATION: Recommendation for antibiotics. Sepsis. HISTORY OF PRESENT ILLNESS: An 87-year-old white gentleman who was admitted to the emergency room for chest pain. The patient comes in on January 17 with chest pain. He has history of coronary disease, history of CABG in December 2016, stent placement, proximal diagonal bypass graft. The patient apparently had 6 or 7 other stents placed in his coronary artery. He is also known to have history of diabetes mellitus, congestive heart failure, obesity, hypertension and CVA in 2008 with right-sided weakness, hyperlipidemia , pulmonary hypertension, chronic kidney disease. Creatinine clearance 1.4, atrial fibrillation. The patient had also new inferior cerebellar infarct recently. He was on Xarelto. The patient comes in with chest pain. He was admitted and came to intensive care unit. Apparently, he was seen by Dr. Hardik Cervantes who had cardiac catheterization on January 20, showed recurrent severe stenosis, 99% in the proximal portion of the left anterior descending graft. The patient on January 24 became worse. He had potassium 2.9 earlier this morning. He was placed on potassium. It went up to 7.4 and he had bradycardia. He was seen by nephrology. He is currently hypotensive on BiPAP and there is concern about sepsis, and infectious disease was consulted. Patient is totally confused. Family and friends at the bedside. He does not provide any meaningful information. PAST MEDICAL HISTORY: Obesity, hypertension, CVA, diabetes, hyperlipidemia, pulmonary hypertension, atrial fibrillation, chronic kidney disease stage 3. PAST SURGICAL HISTORY: CABG and cardiac stenting. ALLERGIES: NKA. SOCIAL HISTORY: Does not smoke. No drug abuse. No albuterol abuse. FAMILY HISTORY: Otherwise hypertension. REVIEW OF SYSTEMS: Could not be obtained. MEDICATION: He is currently on dextrose. clonidine, potassium and Xarelto, prednisone, insulin, cefepime, Flomax and Plavix. PHYSICAL EXAMINATION: GENERAL: He is alert, confused. VITAL SIGNS: Stable currently. Temperature 98.2. No fever since admission. Heart rate 49. Respirations 18. Blood pressure 76/63. HEENT: Normocephalic, not icteric. NECK: Supple. CHEST: A few crackles bilaterally. COR: S1 and S2. No murmur. ABDOMEN: Soft. Distended. EXTREMITIES: No edema. SKIN: There is no rash. No erythema. IMPRESSION: 1. Altered mental status, agitation, hypotensive. Cardiac concern about infection. Leukocytosis. Infection versus other such as cardiac event. 2. Acute anemia, which is new. Concerned about bleed. 3. The patient is DNR. RECOMMENDATIONS: I agree with cefepime 1 gram daily. Agree with Flagyl. Will add Flagyl 500 q.8 h. Obtain ultrasound of the abdomen. Prognosis is poor. I am concerned about his abdominal problems, especially with things such as bleed or other. Will give 1 gram of vancomycin until we get the culture and sensitivity. Discussed with the family. He may have aspirated also. Will follow with you. Job#: [id number]
[2018-01-24] MEDS: ATORVASTATIN 10 MG TAB PO SCH (21:00)
[2018-01-24] MEDS: INSULIN DETEMIR 100 UNIT/ML PEN SQ SCH (21:00)
[2018-01-24] MEDS: CEFEPIME HCL 1 GM VIAL IV SCH (22:00)
[2018-01-24 23:39] LABS: BASOPHILS % 0.1 % (0.0-1.0); HEMATOCRIT 27.9 % (38.2-49.6); LYMPHOCYTES # (AUTO) 0.5 (1.0-3.2); LYMPHOCYTES % 2.5 % (18.0-39.1); MEAN CORPUSCULAR HEMOGLOBIN 30.1 pg (28-32); MEAN CORPUSCULAR HGB CONC 32.3 g/dL (31-35); MEAN CORPUSCULAR VOLUME 93.3 fL (81-99); MONOCYTES # (AUTO) 0.9 (0.2-0.8); MONOCYTES % 4.5 % (4.4-11.3); NEUTROPHILS # (AUTO) 18.6 (2.1-6.9); NEUTROPHILS % 92.1 % (38.7-80.0); PLATELET COUNT 57 x10e3/uL (140-360); RED BLOOD COUNT 2.99 x10e6/uL (4.3-5.7); RED CELL DISTRIBUTION WIDTH 15.1 % (11.7-14.4)
[2018-01-24 23:56] LABS: PARTIAL THROMBOPLASTIN TIME 51.3 seconds (23.8-35.5)
[2018-01-25] VITALS (25 sets, daily range): BP systolic 92–144; BP diastolic 27–112
[2018-01-25 00:02] LABS: INR 7.68
[2018-01-25 00:04] LABS: ALBUMIN 3.9 g/dL (3.5-5.0); ANION GAP 28.6 mmol/L (8-16); CALCIUM 9.3 mg/dL (8.4-10.2); CREATININE, SERUM 4.13 mg/dL (0.72-1.25); MAGNESIUM 2.3 MG/DL (1.3-2.1); PHOSPHORUS 7.6 MG/DL (2.3-4.7)
[2018-01-25 00:10] LABS: POTASSIUM 6.6 mmol/L (3.5-5.1)
[2018-01-25] MEDS: SOD POLYSTYRENE SULFONATE SUSP 15 GM/60 ML BTL NG SCH ×3 (00:12→06:00)
[2018-01-25] MEDS ORDERED: ALBUMIN 25% 12.5GM 100 ML IV ONE ×2 (00:19→06:24)
[2018-01-25 00:44] LABS: ANISOCYTOSIS SLIGHT; BAND NEUTROPHILS % (MANUAL) 3 %; LYMPHOCYTES % (MANUAL) 1 % (19-48); MONOCYTES % (MANUAL) 4 % (3.4-9.0); NEUTROPHILS % (MANUAL) 92 % (40-74); NUCLEATED RED BLOOD CELLS 2; PLATELET ESTIMATE MODERATELY DECREASED; PLATELET MORPHOLOGY COMMENT NORMAL; RBC MORPHOLOGY COMMENT NORMAL
[2018-01-25] MEDS ORDERED: FUROSEMIDE INJ 10 MG/ML 4 ML VIAL IV ONE (02:15)
[2018-01-25] MEDS ORDERED: DEXTROSE 5%/0.45% SOD CHL 1,000 ML IV SCH (02:15)
[2018-01-25 06:14] LABS: BASOPHILS % 0.1 % (0.0-1.0); HEMATOCRIT 27.9 % (38.2-49.6); HEMOGLOBIN 8.7 g/dL (14.0-18.0); LYMPHOCYTES # (AUTO) 0.3 (1.0-3.2); MEAN CORPUSCULAR HEMOGLOBIN 29.9 pg (28-32); MEAN CORPUSCULAR HGB CONC 31.2 g/dL (31-35); MEAN CORPUSCULAR VOLUME 95.9 fL (81-99); MONOCYTES # (AUTO) 0.7 (0.2-0.8); MONOCYTES % 4.2 % (4.4-11.3); NEUTROPHILS % 92.9 % (38.7-80.0); RED BLOOD COUNT 2.91 x10e6/uL (4.3-5.7); RED CELL DISTRIBUTION WIDTH 15.4 % (11.7-14.4)
[2018-01-25 06:23] LABS: PLATELET COUNT 38 x10e3/uL (140-360)
[2018-01-25] MEDS: ALBUMIN 25% 25GM 100 ML IV SCH ×2 (06:25)
[2018-01-25 06:28] LABS: PARTIAL THROMBOPLASTIN TIME 53.3 seconds (23.8-35.5)
[2018-01-25 06:29] LABS: INR 7.32
[2018-01-25 06:30] LABS: PROTHROMBIN TIME 58.7 seconds (11.9-14.5)
[2018-01-25] MEDS ORDERED: CALCIUM GLUCONATE 10% INJ 0.465 MEQ/ML VIAL ONE (06:30)
[2018-01-25 06:33] LABS: ANION GAP 27.1 mmol/L (8-16); CALCIUM 8.5 mg/dL (8.4-10.2); CREATININE, SERUM 4.64 mg/dL (0.72-1.25); MAGNESIUM 2.3 MG/DL (1.3-2.1); PHOSPHORUS 8.3 MG/DL (2.3-4.7)
[2018-01-25 06:41] LABS: POTASSIUM 7.1 mmol/L (3.5-5.1)
[2018-01-25] MEDS ORDERED: ATROPINE SULFATE 0.1 MG/ML 10ML SYR ONE (06:55)
[2018-01-25 08:30] LABS: ANISOCYTOSIS SLIGHT; BAND NEUTROPHILS % (MANUAL) 2 %; HYPOCHROMASIA MODERATE; LYMPHOCYTES % (MANUAL) 1 % (19-48); MONOCYTES % (MANUAL) 2 % (3.4-9.0); MYELOCYTES % (MANUAL) 1 % (0-0); NEUTROPHILS % (MANUAL) 94 % (40-74); RBC MORPHOLOGY COMMENT ABNORMAL
[2018-01-25 08:31] LABS: PLATELET ESTIMATE MODERATELY DECREASED; PLATELET MORPHOLOGY COMMENT NORMAL
--- NOTE | 2018-03-10 21:39 | Discharge Summary ---
SUMMARY CHIEF COMPLAINT: Chest pain, congestive heart failure, hypokalemia, non-STEMI. FINAL DIAGNOSES 1. Non-ST segment elevation myocardial infarction. 2. Acute kidney injury. 3. Anemia. 4. Coagulopathy. An 87-year-old male, known history of coronary artery disease, chronic systolic congestive heart failure, diabetes type 2, and hypertension, brought to the ER with a several-hour history of intermittent chest pain, described as mid chest pressure or shortness of breath. No diaphoresis. No nausea or vomiting. Underwent review and evaluation in the ER. Cardiac was showing a sinus rhythm. Right arm were showing several contusions of upper area, tender to palpation and with further review and evaluation, patient was admitted to facility for treatment and evaluation regarding chest pain, shortness of breath, non-STEMI, coronary artery disease, diabetes type 2, hypertension. With admission, will be requesting a cardiology follow. Home medications will continue. Will be monitoring the patient's sugar. With admission, was undergoing cardiology follow by Dr. Cervantes. Patient does have cardiac history. He has had a CABG in December last year, underwent a new stent implant at the proximal diagonal bypass graft site, been treated medically. 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 Consider repeat cardiac cath, angioplasty, and stenting. The patient is 87 of age with chronic kidney disease. The risks is significant and the benefit is also significant. Decision has been made for the patient and family to decide. He states that the plan is willing to proceed with repeat intervention. Issues of hyperkalemia on the lab findings were evaluated with nephrology, Dr. Quiroz and his assessment after his evaluation was acute kidney injury with hyperkalemia. Will be discussing emergency hemodialysis with family members. Noted that patient has failed medical therapy. Patient may require intubation. He states that the patient is chronically ill. Prognosis is poor. He was then undergoing consultations with hematology, Dr. Villar, due to INR findings of being supratherapeutic with a value of INR more than 8. His impression was anemia of chronic disease, leukemoid reaction, coagulopathy acquired, with INR 9.8. He states that the patient being given vitamin K, as well as fresh frozen plasma. The Xarelto should be discontinued. From the ER, patient was placed in ICU, started on cardiac diet, was started on routine ICU cardiac orders, ICU. Was receiving nitro titrate drip, aspirin 325 daily. Daily medications were continuing. Was also being given nitro 0.4 mg q.5 minutes sublingual times 3 for chest pain. Morphine was being addressed for pain management, was started on potassium chloride. Sugar was being managed with detemir 20 units nightly, lispro 50 units t.i.d. a.c. Initial potassium was noted be at 2.8. Kidney functions, BUN 32, creatinine 1.43, glucose 124. CBC, hemoglobin 10.1, with a white cell count of 13,000. INR of 1.55. Later on, the patient was comfortable, was feeling better, was put on potassium replenishment. His followup potassium was noted be at 3.7, noted on January 19. At that time, the BUN was 40, creatinine was 1.49. Discussions were being carried out to undergo cardiac cath per Dr. Muñiz and the cardiac cath with intervention was carried out on January 20, [address] Muñiz and Dr. Cervantes. On January 21, his INR was 2.13. Potassium dropped back down to 2.9, was continuing potassium replenishment. BUN improved to 27. Creatinine improved to 1.01 on January 14. Noted on January 23, 2018, the patient did have some more chest pains, but was relieved with nitro. On January 23, 2018, patient had a rapid response, was in respiratory distress. Noted at that time that the potassium had jumped to 7.7. Was given a gram of calcium gluconate, an ampule of bicarb, 8 units of regular insulin IV, 1 amp of D50. Noted 2 amps of bicarb. Some more D5W. Was then given Kayexalate. On January 24, potassium was noted be at 8.1. Discussions were led for dialysis, but this was on hold due to the INR being around 9. BP was 82/65. Hemoglobin had dropped to 7.5. White cell count increased 25,000. BUN increased to 55, creatinine was 3.16. Liver enzymes were showing a total bilirubin of 2.8, AST 7366, ALT 3975, alk phos 233. The patient had shocked liver. Patient was receiving vitamin K, as well as fresh frozen plasma. Prognosis were noted to be poor, was on BiPAP. Further potassium is now at 6.1. INR showed at 9.82. AST was now at 9485, ALT 4829, alk phos 218, this was January 24. On January 25, ER physician came to ICU to review patient. Patient was found to be lifeless with no spontaneous respiration, asystole on the monitor. Pupils were nonreactive, fixed, was developing rigor mortis. Patient was pronounced at 0730, estimated of the patient's demise by the nursing small appliance assembly supervisor. Patient did receive a unit of fresh frozen plasma, did receive 2 units of packed cells. His final EKG was showing sinus bradycardia with marked sinus arrhythmia, 1st-degree AV block, right bundle-branch block, left ventricular fascicular block, bifascicular block, possible lateral infarct, age undetermined. Patient did undergo catheterization by Dr. Cervantes. Conclusion on the procedure, Dr. Cervantes states that evidence of recurrent severe stenosis measuring 99% and the proximal portion of the left anterior descending distal graft to the previous 2 osteal stents, successfully treated with angioplasty and medicated stent, post dilated to 3.53 mm. Difficulty passing the proximal stents possibly due to angulation with these areas also postdilated to 3.5 mm graft. The internal mammary grafts is presumably occluded from previous angiography. The graft to the diagonal artery was occluded. The graft to the obtuse marginal artery and the right coronary artery are also occluded. [place] right coronary artery has a 40% to 50% posterior descending artery ostial stenosis to be treated medically. Patient underwent PTCA and stent, a possible left anterior descending graft, posterior stents. Last was in November 2016. As stated, patient's condition worsened, went into liver shock, developed a cardiopulmonary event and was pronounced . Dictated By: DINO Geronimo Job#: [id number]
== END 2018-01-25 10:19 | disposition expired | DRG 246 ==
LOC: ER 10:49 → ICU 13:55 → MED/SURG2 01-22 14:49 → ICU 01-23 16:17
PROC: 4A023N7 Measurement of Cardiac Sampling and Pressure, Left Heart, Percutaneous Approach (ICD-10-PCS; principal; 2018-01-20)
PROC: 027034Z Dilation of Coronary Artery, One Artery with Drug-eluting Intraluminal Device, Percutaneous Approach (ICD-10-PCS; 2018-01-20)
PROC: B2131ZZ Fluoroscopy of Multiple Coronary Artery Bypass Grafts using Low Osmolar Contrast (ICD-10-PCS; 2018-01-20)
PROC: B2111ZZ Fluoroscopy of Multiple Coronary Arteries using Low Osmolar Contrast (ICD-10-PCS; 2018-01-20)
PROC: B2151ZZ Fluoroscopy of Left Heart using Low Osmolar Contrast (ICD-10-PCS; 2018-01-20)
PROC: 5A0945Z Assistance with Respiratory Ventilation, 24-96 Consecutive Hours (ICD-10-PCS; 2018-01-23)
PROC: 02HV33Z Insertion of Infusion Device into Superior Vena Cava, Percutaneous Approach (ICD-10-PCS; 2018-01-24)
PROC: 30233L1 Transfusion of Nonautologous Fresh Plasma into Peripheral Vein, Percutaneous Approach (ICD-10-PCS; 2018-01-24)
PROC: 30233N1 Transfusion of Nonautologous Red Blood Cells into Peripheral Vein, Percutaneous Approach (ICD-10-PCS; 2018-01-24)
DX: I21.4 Non-ST elevation (NSTEMI) myocardial infarction (principal); K72.00 Acute and subacute hepatic failure without coma; R65.21 Severe sepsis with septic shock; N17.0 Acute kidney failure with tubular necrosis; J96.90 Respiratory failure, unspecified, unspecified whether with hypoxia or hypercapnia; J18.0 Bronchopneumonia, unspecified organism; I50.23 Acute on chronic systolic (congestive) heart failure; I25.810 Atherosclerosis of coronary artery bypass graft(s) without angina pectoris; E87.2 Acidosis; N17.9 Acute kidney failure, unspecified; I69.351 Hemiplegia and hemiparesis following cerebral infarction affecting right dominant side; I13.0 Hypertensive heart and chronic kidney disease with heart failure and stage 1 through stage 4 chronic kidney disease, or unspecified chronic kidney disease; D68.9 Coagulation defect, unspecified; Z66 Do not resuscitate; N18.3 Chronic kidney disease, stage 3 (moderate); E77.8 Other disorders of glycoprotein metabolism; E11.9 Type 2 diabetes mellitus without complications; Z79.4 Long term (current) use of insulin; I25.10 Atherosclerotic heart disease of native coronary artery without angina pectoris; E87.6 Hypokalemia; Z95.5 Presence of coronary angioplasty implant and graft; K59.00 Constipation, unspecified; Z88.0 Allergy status to penicillin; R06.00 Dyspnea, unspecified; D63.8 Anemia in other chronic diseases classified elsewhere; R91.8 Other nonspecific abnormal finding of lung field; I48.0 Paroxysmal atrial fibrillation; E78.5 Hyperlipidemia, unspecified; E88.09 Other disorders of plasma-protein metabolism, not elsewhere classified
CPT/HCPCS: 36140; 36415; 36569; 36600; 71045; 74018; 76770; 77002; 80048; 80053; 80061; 82088; 82150; 82550; 82553; 82805; 82948; 83605; 83690; 83735; 83880; 84100; 84436; 84443; 84479; 84484; 85025; 85347; 85610; 85730; 86160; 86850; 86900; 86920; 87040; 92920; 93005; 93459; 93976; 94640; 94660; 99285; C1766; C9600; J0610; J0692; J1170; J1327; J1644; J1650; J1940; J2001; J2250; J2270; J2310; J2405; J3430; J7030; J7070; J7799; P9016; P9017; P9047; Q9967